=== PATIENT | male | born 1960 | race Caucasian/White ===

== ENCOUNTER → 2023-09-19 06:35 | Outpatient (REF) | payer BC, SELFPAY ==
[2023-09-19 08:00] LABS: Blood Urea Nitrogen 16 mg/dl (9-20); Calcium 9.7 mg/dl (8.4-10.2); Carbon Dioxide 22 mmol/L (22-30); Chloride 107 mmol/L (98-107); Glucose 146 mg/dl (70-99); Potassium 4.7 mmol/L (3.5-5.1); Sodium 138 mmol/L (135-145); eGFR > 60.00
[2023-09-19 08:18] LABS: Microalbumin, Random Urine 1.2 mg/dl (0.6-1.7); Microalbumin/creatinine Ratio 9.5 mg/g
== END ==
LOC: REG 06:35
PROVIDERS: ATTENDING PHYSICIAN Family Medicine
DX: E11.59 Type 2 diabetes mellitus with other circulatory complications (principal)
CPT/HCPCS: 36415; 80048; 82043; 82570; 83036

== ENCOUNTER → 2023-10-02 06:45 | Outpatient (REF) | payer BC, SELFPAY ==
[2023-10-02 20:29] LABS: Hepatitis A IgM Antibody Negative (Negative)
[2023-10-03 19:07] LABS: EBV-EA (D) Ab IgG 6.3 U/mL (0.0-10.9); EBV-NA IgG 6.6 U/mL (0.0-21.9); EBV-VCA IgM Antibodies <10.0 U/mL (0.0-43.9)
== END ==
LOC: REG 06:45
PROVIDERS: ATTENDING PHYSICIAN Family Medicine
DX: R53.82 Chronic fatigue, unspecified (principal)
CPT/HCPCS: 36415; 86663; 86664; 86665; 86709

== ENCOUNTER → 2024-01-16 07:40 | Outpatient (REF) | payer BC, SELFPAY | LOC: DHCBC/DCA 07:40 | PROVIDERS: ATTENDING PHYSICIAN Internal Medicine; FAMILY PHYSICIAN Family Medicine | DX: R53.83 Other fatigue (principal); I10 Essential (primary) hypertension; E78.2 Mixed hyperlipidemia | CPT/HCPCS: 78452; 93017; A9500; J2785 ==

== ENCOUNTER → 2024-01-21 07:14 | Outpatient (REF) | payer BC, SELFPAY | LOC: HWRCS 07:14 | PROVIDERS: ATTENDING PHYSICIAN Internal Medicine; FAMILY PHYSICIAN Family Medicine | DX: I10 Essential (primary) hypertension (principal); R53.83 Other fatigue; E78.2 Mixed hyperlipidemia | CPT/HCPCS: 93306 ==

== ENCOUNTER → 2024-07-09 06:20 | Outpatient (REF) | payer BC, SELFPAY ==
[2024-07-09 07:48] LABS: ALT (SGPT) 29 U/L (0-50); AST (SGOT) 28 U/L (17-59); Albumin 4.1 g/dl (3.5-5.0); Alkaline Phosphatase 110 U/L (38-126); Blood Urea Nitrogen 13 mg/dl (9-20); Calcium 9.4 mg/dl (8.4-10.2); Carbon Dioxide 24 mmol/L (22-30); Chloride 102 mmol/L (98-107); Glucose 232 mg/dl (70-99); HDL Cholesterol 40 mg/dl; LDL Cholesterol, Calculated 80 mg/dl; Potassium 4.7 mmol/L (3.5-5.1); Sodium 135 mmol/L (135-145); Total Bilirubin 1.8 mg/dl (0.2-1.3); Total Cholesterol 162 mg/dl (50-199); Total Protein 7.2 g/dl (6.3-8.2); Triglyceride 213 mg/dl (10-149); Very Low Density Lipoprotein 42 mg/dl (0-30); eGFR > 60.00
[2024-07-09 08:47] LABS: Free T4 0.77 ng/dl (0.78-2.19)
[2024-07-09 12:45] LABS: Glycohemoglobin (HgbA1c) 8.2 % (4.0-5.6)
== END ==
LOC: REG 06:20
PROVIDERS: ATTENDING PHYSICIAN Family Medicine
DX: E11.59 Type 2 diabetes mellitus with other circulatory complications (principal)
CPT/HCPCS: 36415; 80053; 80061; 83036; 84439; 84443

== ENCOUNTER → 2024-08-07 10:57 | Outpatient (REF) | payer BC, SELFPAY ==
[2024-08-07 13:16] LABS: TSH Reflex To Free T4 3.09 uIU/ml (0.47-4.68)
== END ==
LOC: REG 10:57
PROVIDERS: ATTENDING PHYSICIAN Family Medicine
DX: E03.9 Hypothyroidism, unspecified (principal)
CPT/HCPCS: 36415; 84443

== ENCOUNTER → 2024-10-20 06:24 | Outpatient (REF) | payer BC, SELFPAY ==
[2024-10-20 08:24] LABS: Blood Urea Nitrogen 16 mg/dl (9-20); Carbon Dioxide 23 mmol/L (22-30); Chloride 109 mmol/L (98-107); Glucose 131 mg/dl (70-99); Sodium 143 mmol/L (135-145); eGFR > 60.00
[2024-10-20 09:08] LABS: Glycohemoglobin (HgbA1c) 6.8 % (4.0-5.6)
== END ==
LOC: REG 06:24
PROVIDERS: ATTENDING PHYSICIAN Family Medicine
DX: E11.59 Type 2 diabetes mellitus with other circulatory complications (principal); K52.9 Noninfective gastroenteritis and colitis, unspecified
CPT/HCPCS: 36415; 80048; 83036

== ENCOUNTER → 2024-12-17 06:19 | Outpatient (REF) | payer BC, SELFPAY ==
[2024-12-17 07:49] LABS: ALT (SGPT) 28 U/L (0-50); AST (SGOT) 23 U/L (17-59); Albumin 4.3 g/dl (3.5-5.0); Alkaline Phosphatase 112 U/L (38-126); Blood Urea Nitrogen 12 mg/dl (9-20); Calcium 9.2 mg/dl (8.4-10.2); Carbon Dioxide 24 mmol/L (22-30); Chloride 108 mmol/L (98-107); Glucose 129 mg/dl (70-99); Magnesium 2.2 mg/dl (1.6-2.3); Potassium 4.3 mmol/L (3.5-5.1); Sodium 140 mmol/L (135-145); Total Protein 7.1 g/dl (6.3-8.2); eGFR > 60.00
== END ==
LOC: REG 06:19
PROVIDERS: ATTENDING PHYSICIAN Family Medicine
DX: E11.59 Type 2 diabetes mellitus with other circulatory complications (principal); Z68.34 Body mass index [BMI] 34.0-34.9, adult; E66.09 Other obesity due to excess calories; E61.2 Magnesium deficiency
CPT/HCPCS: 36415; 80053; 83735

== ENCOUNTER 2025-01-07 09:50 | Emergency (ER) | payer BC, SELFPAY ==
[2025-01-07 09:52] VITALS: BP 134/74
[2025-01-07 10:58] VITALS: BP 128/76; BMI 30.8
[2025-01-07 11:00] VITALS: BP 129/71
--- NOTE | 2025-01-07 11:23 | ED.GENMED ---
History of Present Illness
General
Chief Complaint: Chest Pain
Source: patient and records
Exam Limitations: none
Time Seen by Provider: 01/07/25 11:02
Nursing documentation reviewed up to this point in time: agreed with
History of Present Illness
History of Present Illness:
64-year-old male prior stroke on Aggrenox hypertensive diabetic hyperlipidemia non-smoker nondrinker except for communion wine presents with episodes of chest pain in the past 4 days while at rest varying from 20 minutes to an hour described as a
pressure in his chest nonradiating no shortness of breath no diaphoresis, no prior episodes has been seen by [facility] cardiology previously the patient states he does not have coronary artery disease nor arrhythmias
Currently chest pain-free most recent episode of chest pain was around 5:30 AM today lasted 20 to 30 minutes
Past History
Past History
ED Past Medical History: CVA, HTN and NIDDM; Negative [facility]
ED Past Surgical History: Negative Cardiac
Social History
Tobacco: Non-smoker
Alcohol: None
Drug: None
Living: with family
Employment: Employed
Family History
Family History: Hypertension
Review of Systems
Review of Systems
All Other Systems: Not applicable
Constitutional: Denies fever, fatigue or chills
Respiratory: Denies trouble breathing
Cardiac: Reports chest pain; Denies diaphoresis, palpitations or syncope
ABD/GI: Reports no symptoms
Phy Exam
Physical Exam
Physical Exam:
Physical Exam
General: no apparent distress, not acutely ill
Neck: No jaundice
Heart: s1/s2 regular rate and rhythm, no murmur. equal radial pulses.
Lungs: no acute respiratory distress. clear bilaterally
Abdomen: Not tender
Neuro: alert and oriented. no focal neurological deficits
Skin: no rash
Psychiatric: well kept. interactive and cooperative
Extremities: no edema. no calf tenderness.
Scores
Heart Score for Chest Pain Patients
STEMI patient?: No
History: Slightly or Non-Suspicious
ECG: Normal
Age: >45 - <65 years
Risk Factors: >/= 3 Risk Factors or History of CAD
Troponin: </= Normal Limit
Heart Score for Chest Pain Patients: 3
Heart Score Risk: 2.5% MACE over next 6 weeks
Course
Orders/Labs/Results
Orders:
Orders
01/07/25 09:54
EKG [Electrocardiogram (*1)] Urgent
Reason for Study: Chest Pain
EKG- Treatment ONCE
01/07/25 11:18
Electrocardiogram (*1) Stat
Reason for Study: Other
Other Reason for Exam: chest pain
CR Chest - 2 Views Urgent
Comment:
Reason For Exam: cp
01/07/25 11:45
Complete Blood Count/With Diff Urgent
Comprehensive Metabolic Panel Urgent
Lipase Urgent
Magnesium Urgent
TSH Urgent
Troponin I Urgent
Abnormal Lab Results
01/07/25
11:45
MCV 94.7 H fL
(80.0-94.0)
MCH 31.9 H pg
(27.0-31.0)
Absolute Monos (auto) 1.1 H 10^3/uL
(0.1-0.6)
Monocytes % 10.7 H %
(1.7-9.3)
Glucose 159 H mg/dl
(70-99)
01/07/25 11:45
01/07/25 11:45
Vital Signs
Initial and Last Documented VS:
Initial Vital Signs
Temp Pulse Resp BP Pulse Ox
99.3 F 82 16 134/74 98
01/07/25 09:52 01/07/25 09:52 01/07/25 09:52 01/07/25 09:52 01/07/25 09:52
Last Documented Vital Signs
Temp Pulse Resp BP Pulse Ox
99.3 F 77 22 123/77 96
01/07/25 09:52 01/07/25 13:15 01/07/25 13:15 01/07/25 13:00 01/07/25 13:00
MDM/Problems Addressed
Differential Diagnosis Includes:
ACS, noncardiac chest pain pancreatitis pleurisy doubt PE or pneumothorax
MDM/Problems Addressed:
Chest pain
Chronic conditions affecting care: DM and HTN
Acute Exacerbation and/or Progression of Chronic Illness: DM and HTN
*Radiology
Radiology exam reviewed: preliminary read by ED provider
*Pulse Oximetry
SaO2: 93
Oxygen Mode of Delivery: Room air
Patient hypoxic: no
*EKG
Interpreted by ED Provider?: Yes
Interpretation: abnormal
Comparison EKG: no comparison EKG present
Heart Rate: 70
Rate: normal
Rhythm: sinus
Ischemia: other (Inferior Q waves seen on prior trace)
*Rate Supervisor Interpretation
Rate: normal
Interpretation: normal
Heart Rate: 70
Rhythm: sinus
*Critical Care Note
Total Time (30-74mins, 75-104mins- exclusive of procedures): Not Applicable
Update Note
Update Note:
1:10 PM update chest x-ray noted report noted labs noted troponin noted patient is hungry
Patient appears stable for outpatient follow-up chest pain hotline notified
ED Attending Note
-
Portions of this chart may have been created with voice recognition software.� Occasional wrong word or��sound alike� substitutions may have occurred due to the inherent limitations of voice recognition software.
Discharge Plan
Departure
Patient Disposition: Home (Routine Discharge)
Date of Disposition: 01/07/25
Time of Disposition: 13:17
Patient with high blood pressure during this ER visit?: No
Condition: Good
Discharge Problem:
Chest pain
Instructions: Chest Pain CBC Follow Up
Prescriptions:
No Action
Aggrenox:
Patient Comments:
unknown dosage
LISINOPRIL
Patient Comments:
unknown dosage
Levothyroxine
Patient Comments:
unknown dosage
Simvastatin
Patient Comments:
unknown dosage
Referrals:
Lane Marcelo MD [Family Provider, Family Practice]
Interventions
Interventions:
*Risk Screen - Suicide Last Done: 01/07/25 09:52
*General Assessment Last Done: 01/07/25 10:58
*Neglect/Abuse Screening Last Done: 01/07/25 09:52
*ED- Fall Risk Assessment Last Done: 01/07/25 10:58
*ED COVID-19 Vaccine History Last Done: 01/07/25 10:58
ED- Cardiac Assessment Last Done: 01/07/25 10:58
Discharge Date and Time
Print Language: GIBRALTARIAN
--- NOTE | 2025-01-07 11:32 | EDRN ---
Attempted IV and blood work but difficult stick. Another RN requested to attempt blood draw and IV
[2025-01-07 11:54] LABS: Hematocrit 51.6 % (39.0-52.0); Hemoglobin 17.4 g/dL (13.0-18.0); Mean Corp Hgb Conc. 33.7 g/dL (33.0-37.0); Mean Corpuscular Volume 94.7 fL (80.0-94.0); Nucleated Red Blood Cells % 0 % (-); Platelet Count 252 10^3/uL (130-400); Red Cell Dist. Width 13.6 % (11.5-14.5)
[2025-01-07 11:56] VITALS: BP 129/71
[2025-01-07 12:00] VITALS: BP 132/82
[2025-01-07 12:09] LABS: ALT (SGPT) 23 U/L (0-50); AST (SGOT) 21 U/L (17-59); Albumin 4.4 g/dl (3.5-5.0); Alkaline Phosphatase 102 U/L (38-126); Blood Urea Nitrogen 15 mg/dl (9-20); Calcium 9.8 mg/dl (8.4-10.2); Carbon Dioxide 25 mmol/L (22-30); Chloride 107 mmol/L (98-107); Estimated Creatinine Clearance 89 ml/min; Glucose 159 mg/dl (70-99); Lipase 107 U/L (23-300); Magnesium 2.1 mg/dl (1.6-2.3); Potassium 4.8 mmol/L (3.5-5.1); Sodium 140 mmol/L (135-145); Total Protein 7.6 g/dl (6.3-8.2); eGFR > 60.00
[2025-01-07 12:19] LABS: Troponin I < 0.012 ng/ml
[2025-01-07 12:39] LABS: TSH 1.21 uIU/ml (0.47-4.68)
[2025-01-07 13:00] VITALS: BP 123/77
== END 2025-01-07 13:35 | disposition home or self-care (01) ==
LOC: EMR 09:50
PROVIDERS: EMERGENCY PHYSICIAN Emergency Medicine; FAMILY PHYSICIAN Family Medicine
DX: R07.89 Other chest pain (principal); I10 Essential (primary) hypertension; E11.69 Type 2 diabetes mellitus with other specified complication; I25.10 Atherosclerotic heart disease of native coronary artery without angina pectoris; Z82.49 Family history of ischemic heart disease and other diseases of the circulatory system; Z86.73 Personal history of transient ischemic attack (TIA), and cerebral infarction without residual deficits
CPT/HCPCS: 99283; 71046; 80053; 83690; 83735; 84443; 84484; 85025; 93005

== ENCOUNTER → 2025-01-20 08:11 | Outpatient (REF) | payer BC, SELFPAY | LOC: RCS 08:11 | PROVIDERS: ATTENDING PHYSICIAN Internal Medicine Cardiovascular Disease; FAMILY PHYSICIAN Family Medicine | DX: R07.2 Precordial pain (principal) | CPT/HCPCS: 93306 ==

== ENCOUNTER → 2025-01-21 07:16 | Outpatient (REF) | payer BC, SELFPAY | LOC: HWRCS 07:16 | PROVIDERS: ATTENDING PHYSICIAN Internal Medicine Cardiovascular Disease; FAMILY PHYSICIAN Family Medicine | DX: R07.2 Precordial pain (principal) | CPT/HCPCS: 78452; 93017; A9500; J2785 ==

== ENCOUNTER 2025-02-12 01:57 | Inpatient (IN) | payer BC, SELFPAY ==
[2025-02-11 22:21] VITALS: BP 151/82
[2025-02-11 22:32] VITALS: BMI 32.2
[2025-02-11 22:44] VITALS: BP 144/85
[2025-02-11 23:00] VITALS: BP 96/75
[2025-02-11 23:06] LABS: Hematocrit 50.8 % (39.0-52.0); Hemoglobin 17.4 g/dL (13.0-18.0); Mean Corp Hgb Conc. 34.3 g/dL (33.0-37.0); Mean Corpuscular Volume 92.0 fL (80.0-94.0); Nucleated Red Blood Cells % 0 % (-); Platelet Count 239 10^3/uL (130-400); Red Cell Dist. Width 13.5 % (11.5-14.5)
--- NOTE | 2025-02-11 23:29 | ED.GENMED ---
History of Present Illness
General
Chief Complaint: Chest Pain
Source: patient, previous radiology exam (Unremarkable chest x-ray January 07. Unremarkable nuclear stress test January 21) and previous hospital records (ED visit 1 month ago for similar complaints of chest pain. Unremarkable ED workup. Has since
followed up with cardiology and underwent unremarkable nuclear stress test January 21)
Exam Limitations: none
Time Seen by Provider: 02/11/25 22:30
Nursing documentation reviewed up to this point in time: agreed with
History of Present Illness
History of Present Illness:
The patient is a 65-year-old male with a history of diabetes, hypertension, hyperlipidemia, and prior stroke, presenting with chest pain that began at approximately 5:00 PM today. The patient described the pain as occurring in the center, more
towards the left side of the chest. He reported that the pain did not worsen with deep breaths, was constant since its onset, and was similar to, yet distinct from, the chest pain experienced during a previous episode a month ago.
The prior chest pain episode had been investigated with a stress test, which was normal. The patient denied any breathing difficulties or cough and has not experienced fever. He mentioned that a coworker recently had COVID-related symptoms, which
has raised concern about a possible connection given the current symptoms.
Additionally, the patient noted heaviness in the chest while walking uphill to work at the [employer] over the past several days, which resolved after reaching his destination. He is not on insulin but takes Aggrenox for stroke prevention and does
not take additional aspirin. The patient does not smoke. An electrocardiogram performed in the department appeared similar to the one obtained during the previous visit.
He also notes waking up this morning with a mildly scratchy throat. He denies sore throat. No nasal congestion. He has not had a fever.
No leg pain or swelling.
Past History
Past History
ED Past Medical History: CVA, HTN, Hypercholesterolemia and NIDDM; Negative [facility]
ED Past Surgical History: Negative Cardiac
Social History
Tobacco: Non-smoker
Alcohol: None
Drug: None
Personal: Other
Living: with family
Employment: Employed (Works at the [employer])
Family History
Family History: Hypertension
Phy Exam
Physical Exam
Physical Exam:
GENERAL: 65-year-old overweight gentleman appears his stated age. Awake and alert, pleasant, appears in no acute distress.
EYE: anicteric
NECK: Supple, nontender, no meningismus, no significant adenopathy.
ENT: oral mucosa is moist. No rhinorrhea.
CARDIAC: Regular rate and rhythm. no murmur. No chest wall tenderness.
LUNGS: Clear breath sounds bilaterally, no acute respiratory distress, no wheezes/rales/rhonchi
ABDOMEN: Rotund, soft, nondistended, without focal tenderness, normoactive BS.
NEUROLOGICAL: Alert and oriented x3, no focal neuro deficits.
SKIN: Warm and dry, normal color, skin intact. No rash.
MUSCULOSKELETAL: No C/C/E. peripheral pulses are full and equal b/l. No palpable tenderness.
PSYCH: Normal and appropriate interaction.
Scores
Heart Score for Chest Pain Patients
STEMI patient?: Yes
Course
Orders/Labs/Results
Orders:
Orders
02/11/25 22:23
EKG [Electrocardiogram (*1)] Urgent
Reason for Study: Chest Pain
02/11/25 22:24
EKG- Treatment ONCE
02/11/25 22:39
Complete Blood Count/With Diff Urgent
Comprehensive Metabolic Panel Urgent
Lipase Urgent
Troponin I Urgent
02/11/25 22:48
D-Dimer Urgent
02/11/25 23:08
COVID-19 Antigen Urgent
Source: Nasal Swab
02/12/25 00:20
EKG- Treatment ONCE
02/12/25 00:30
Electrocardiogram (*1) Urgent
Reason for Study: Chest Pain
02/12/25 00:46
Aspirin Chewable [Low Strength Aspirin] 324 mg .ROUTE .STK-MED ONE
Nitroglycerin Sublingual [Nitrostat (Sublingual)] 0.4 mg .ROUTE .STK-MED ONE
02/12/25 00:48
Aspirin Chewable [Low Strength Aspirin] 324 mg PO NOW STA
02/12/25 00:49
Nitroglycerin Sublingual [Nitrostat (Sublingual)] 0.4 mg SL NOW STA
02/12/25 00:54
PTT Urgent
Troponin I Urgent
02/12/25 00:55
Nitroglycerin Sublingual [Nitrostat (Sublingual)] 0.4 mg SL NOW STA
02/12/25 01:00
0.9% Sodium Chloride 1000 ml [Nss] 1,000 ml IV BOLUS
02/12/25 01:01
Nitroglycerin Sublingual [Nitrostat (Sublingual)] 0.4 mg SL NOW STA
02/12/25 01:04
Heparin 4,000 units IV NOW STA
02/12/25 01:05
Electrocardiogram (*1) Urgent
Reason for Study: Chest Pain
EKG- Treatment ONCE
Nursing to Place Non Medication Order As Directed
Physician Order: PTT 6 hours after initial start of Heparin infusion
heparin discontinues post cath
Above order entered?: Yes
02/12/25 01:15
Heparin 37880 Units/250 ml 25,000 units in 250 ml IV PER PROTOCOL
Weight to be used for heparin protocol in kilograms (kg):: 96
Protocol:: Cardiac Tx/Acute Coronary
PTT Goal Range to be used:: PTT 73 to 111 seconds
Order type:: Initial
INITIAL Infusion Dose (UNITS/KG/hr) & then follow protocol:: 12 units/kg/hr
Infusion Dose in UNITS/hr & then follow protocol (UNITS/hr):: 1,000
INFUSION RATE in mL/hr & then follow protocol (mL/hr):: 10
PTT less than or equal to 64 seconds:: Increase rate by 200 units/hr (+ 2 mL/hr)
PTT 64.1 to 72.9 seconds:: Increase rate by 100 units/hr (+ 1 mL/hr)
PTT 73 to 111 seconds:: Target Range. No change in rate.
PTT 111.1 to 130.9 seconds:: Decrease rate by 100 units/hr (- 1 mL/hr)
PTT 131 to 199.9 seconds:: HOLD for 1 hr. Then decrease rate by 200 units/hr (- 2 mL/hr)
PTT greater than or equal to 200 seconds:: HOLD for 2 hrs & Notify Provider. Then decrease by 200 units/hr (-
2 mL/hr)
Lab follow-up:: Each change, PTT q6h until 2 consecutive are therapeutic. Then PTT
daily.
02/12/25 01:16
Heparin 5,000 units IV NOW STA
02/12/25 01:18
Morphine Sulfate 4 mg .ROUTE .STK-MED ONE
02/12/25 01:19
Morphine Sulfate 2 mg IV NOW STA
02/12/25 01:21
Ondansetron Injectable [Zofran] 4 mg .ROUTE .STK-MED ONE
02/12/25 01:26
Morphine Sulfate 4 mg IV NOW STA
02/12/25 01:28
Heparin 5,000 units .ROUTE .STK-MED ONE
Ticagrelor [Brilinta] 180 mg .ROUTE .STK-MED ONE
02/12/25 01:40
Fentanyl Citrate/Pf [Sublimaze] 100 mcg .ROUTE .STK-MED ONE
Heparin 10,000 units .ROUTE .STK-MED ONE
Heparin 1000 Units/500 ml [Heparin] 1,000 units in 500 ml .ROUTE .STK-MED
Heparin Sodium,Porcine/Ns/Pf [Heparin 2000 Units/1000 ml] 2,000 unit in 1,000 ml .ROUTE .STK-MED
Lidocaine HCl/Pf [Xylocaine-Mpf 1% Vial] 100 mg .ROUTE .STK-MED ONE
Midazolam HCl [Versed] 2 mg .ROUTE .STK-MED ONE
Nitroglycerin [Tridil] 1,500 mcg .ROUTE .STK-MED ONE
Verapamil Injectable [Isoptin/Verapamil Injection] 5 mg .ROUTE .STK-MED ONE
Abnormal Lab Results
02/11/25 02/12/25 02/12/25
22:39 00:54 01:57
WBC 11.4 H 10^3/uL
(4.8-10.8)
MCH 31.5 H pg
(27.0-31.0)
Absolute Neuts (auto) 6.9 H 10^3/uL
(1.4-6.5)
Absolute Monos (auto) 1.4 H 10^3/uL
(0.1-0.6)
Monocytes % 11.8 H %
(1.7-9.3)
Potassium 5.2 H mmol/L
(3.5-5.1)
Glucose 257 H mg/dl
(70-99)
Troponin I 0.055 H* D ng/ml
POC ACT Low Range 184 H Seconds
(116-155)
02/12/25 00:46
02/11/25 22:39
Vital Signs
Initial and Last Documented VS:
Initial Vital Signs
Temp Pulse Resp BP Pulse Ox
98.6 F 95 12 151/82 96
02/11/25 22:21 02/11/25 22:21 02/11/25 22:21 02/11/25 22:21 02/11/25 22:21
Last Documented Vital Signs
Temp Pulse Resp BP Pulse Ox
98.6 F 94 13 135/89 97
02/11/25 22:21 02/12/25 05:00 02/12/25 01:30 02/12/25 05:00 02/12/25 04:31
MDM/Problems Addressed
Differential Diagnosis Includes:
The Differential Diagnosis includes, in no particular order and is not limited to:
- Angina (due to coronary artery disease)
- Costochondritis
- Gastroesophageal reflux disease
- Pulmonary embolism
- Aortic dissection
- Pericarditis
- Myocarditis
- Anxiety or panic disorder
- COVID-19 related chest pain
- Musculoskeletal pain
MDM/Problems Addressed:
Acute chest pain
Potential exposure to COVID
Plan:
- Perform a COVID test due to recent exposure to a coworker with COVID.
- Will check cardiac enzymes and a D-dimer test to assess for possible blood clots, with a note on the limited positive predictive value for D-dimer. If elevated, a CT chest with contrast may be considered.
- The patient has a recent negative stress test, providing reassurance against acute coronary syndrome.
Chronic conditions affecting care: DM, HTN, Neurological disorder (Prior history of CVA) and Other (Hyperlipidemia)
*Pulse Oximetry
SaO2: 94
Oxygen Mode of Delivery: Room air
Patient hypoxic: no
*EKG
Interpreted by ED Provider?: Yes
Comparison EKG: no changes (Unchanged from previous January 07, 2025)
Rate: normal
Rhythm: sinus
[place]: left axis deviation
Interval: normal interval
QRS Pattern: normal QRS
Ischemia: no ischemia
*Heel Splitter Interpretation
Rate: normal
Interpretation: normal
Rhythm: sinus
*Critical Care Note
Total Time (30-74mins, 75-104mins- exclusive of procedures): 45
comment:
Critical care statement: A total of 45 minutes of critical care time was provided for this patient. This includes management of unstable vital signs, evaluation of the patient at bedside, reviewing the patient's pertinent medical records, discussion
with consultants, review of old EKGs and review of pertinent medical records. This time with separate from time utilized to perform the aforementioned documented procedures
Update Note
Update Note:
00:55
Patient got up to go to the bathroom and upon returning he reports worsening chest pain, pressure in nature accompanied with shortness of breath and moderate diaphoresis.
Repeat EKG shows acute changes, ST depression anteriorly concerning for acute anterior ischemia versus potential posterior wall AR/STEMI.
324 mg chewable aspirin and thus far 2 sublingual nitroglycerin with moderate improvement in chest pain but has not completely resolved.
Case discussed with interventional list, Dr. Pantoja. EKGs reviewed.
Will give an additional nitroglycerin, recheck EKG and if continues with chest pain
01:10
After 3 sl nitroglycerin, chest pain is improved but continues at an 8 out of 10.
Repeat EKG continues with some ST depression anteriorly now with mild ST elevation inferiorly in 3 and aVF concerning for inferior wall AR/STEMI. STEMI alert initiated.
01:30
Chest pain improved to about a 7. No further diaphoresis.
Monitor shows sinus rhythm 60
Systolic blood pressure 114
Mild nausea after small IV dose of morphine, has since resolved with IV Zofran.
Awaiting cardiology and Airline Radio Operator team arrival.
ED Attending Note
-
Portions of this chart may have been created with voice recognition software.� Occasional wrong word or��sound alike� substitutions may have occurred due to the inherent limitations of voice recognition software.
Discharge Plan
Departure
Patient Disposition: Admit
Date of Disposition: 02/12/25
Time of Disposition: 01:34
Admit to: [facility]ICU and crime lab analyst
Admit to doctor: Kit
Presentation/result/management discussed w/ accepting MD/DO: cardiology
Condition: Serious
Discharge Problem:
ST elevation (STEMI) myocardial infarction
Interventions
Interventions:
*Risk Screen - Suicide Last Done: 02/11/25 22:21
*General Assessment Last Done: 02/11/25 22:21
*Neglect/Abuse Screening Last Done: 02/11/25 22:21
*ED- Fall Risk Assessment Last Done: 02/11/25 23:14
*ED COVID-19 Vaccine History Last Done: 02/11/25 22:21
*Nursing Disposition Last Done: 02/12/25 01:45
ED- Cardiac Assessment Last Done: 02/11/25 22:45
Discharge Date and Time
Discharge Date/Time: 02/12/25 01:50
[2025-02-11 23:33] LABS: Troponin I 0.032 ng/ml
[2025-02-11 23:33] LABS: COVID-19 Antigen Negative (Negative)
[2025-02-11 23:34] LABS: ALT (SGPT) 31 U/L (0-50); AST (SGOT) 32 U/L (17-59); Albumin 4.3 g/dl (3.5-5.0); Alkaline Phosphatase 95 U/L (38-126); Blood Urea Nitrogen 20 mg/dl (9-20); Calcium 9.4 mg/dl (8.4-10.2); Carbon Dioxide 24 mmol/L (22-30); Chloride 105 mmol/L (98-107); Estimated Creatinine Clearance 76 ml/min; Glucose 257 mg/dl (70-99); Lipase 171 U/L (23-300); Potassium 5.2 mmol/L (3.5-5.1); Sodium 137 mmol/L (135-145); Total Protein 7.4 g/dl (6.3-8.2); eGFR > 60.00
[2025-02-11 23:44] LABS: D-Dimer < 0.27 ug/mlFEU (0.00-0.50)
[2025-02-12] VITALS (23 sets, daily range): BP systolic 97–156; BP diastolic 64–98; BMI 31.7
[2025-02-12] MEDS: LOW STRENGTH ASPIRIN 324 MG PO (00:48)
[2025-02-12] MEDS: NITROSTAT (SUBLINGUAL) 0.4 MG SL ×3 (00:49→01:01)
[2025-02-12] MEDS: NSS 1000 IV (01:00)
[2025-02-12] MEDS: HEPARIN 5000 UNITS IV (01:19)
[2025-02-12] MEDS: MORPHINE SULFATE 4 MG IV (01:26)
[2025-02-12 01:27] LABS: APTT 26.9 Sec (23.4-35.0)
[2025-02-12 01:47] LABS: Troponin I 0.055 ng/ml
[2025-02-12 02:13] LABS: ACT-LR - POC 184 Seconds (116-155)
[2025-02-12 02:28] LABS: ACT-LR - POC 285 Seconds (116-155)
[2025-02-12 02:48] LABS: ACT-LR - POC 324 Seconds (116-155)
--- NOTE | 2025-02-12 03:02 | ITS.CL.CATH ---
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
Cardiac Catheterization
Procedure Report:
LEFT HEART CATH AND CORONARY INTERVENTION
Date of Procedure: February 12, 2025
Referring: Dr. William Ellsworth
PROCEDURES:
1. Left heart catheterization with coronary and single-plane left ventriculography
2. Successful stenting of the mid circumflex with placement of a 3.5 x 18 mm Mihai stent that was postdilated with a 3.75 mm noncompliant balloon to 18 carolina distally and 20 carolina proximally
INDICATION: This is a 65-year-old diabetic gentleman with a past medical history notable for hypertension, hyperlipidemia, diabetes, hypothyroidism, obesity and prior CVA. He was seen in [facility] in mid December for evaluation of
substernal chest tightness with serial troponin levels measuring within normal limits. A subsequent stress study on 01/21/2025 was notable for no fixed or reversible defect and preserved LVEF estimated at 57%. An echocardiogram from that time was
also notable for preserved LV systolic function with an estimated ejection fraction of 60-65% and no significant valvular heart disease.
He reported the onset of substernal chest pressure this evening at approximately 5 PM after work. His symptoms persisted and he presented to [facility] emergency department for further evaluation. He received aspirin, heparin, and
sublingual nitroglycerin. In spite of aggressive medical therapy he continued to experience chest tightness and a NSTEMI Alert was activated for ongoing chest pain in spite of good medical therapy. He is now referred for emergent coronary
angiography.
ACCESS: Right radial artery, 6 Latvian sheath
HEMODYNAMICS (mmHg):
AO (s/d, m) : 103/74, 88
LV (s/d) : 111/19
LVEDP : 32
CORONARY FINDINGS
Dominance: Right
LEFT MAIN: Normal
LEFT ANTERIOR DESCENDING: The LAD arises normally from the left main and runs in the anterior interventricular groove. There is a 30% ostial narrowing and 50-60% stenosis in the mid LAD just beyond the first septal calender supervisor. A 50% stenosis is
noted in the mid LAD near the origin of the first diagonal branch and 40% stenosis near the origin of a very small second diagonal branch. The remainder of the LAD has diffuse noncritical luminal irregularities. The first diagonal branch has a 60%
ostial stenosis
CIRCUMFLEX: 100% occluded in the mid vessel
RIGHT CORONARY: The right coronary artery is chronically occluded in its midportion with right to right collaterals and well-developed [id number] collaterals filling the distal vessel
VENTRICULOGRAPHY: Left ventriculography is performed in an MENDEZ projection. The digital single-plane left ventricular ejection fraction is visually estimated at 30-35% with moderate global hypokinesis more prominent in the anterolateral and inferior
jo.
ANGIOPLASTY PROCEDURE DETAIL: Upon review of the diagnostic catheterization films the decision was made to proceed with percutaneous revascularization of the 100% occluded circumflex. Intravenous heparin was administered and the ACT was monitored
throughout the procedure. He received 324 mg loading dose of aspirin in the emergency department as well as a 180 mg loading dose of ticagrelor.
The origin of the left main was cannulated with a 6 Latvian EBU 3.75 guiding catheter and a short BMW guidewire across the occluded segment in the mid circumflex without significant difficulty. Balloon predilation was performed with a 2.0 x 12 mm
Euphora balloon which restored antegrade flow into a large nondominant circumflex. A 3.5 x 18 mm Whitehall stent was implanted in the mid circumflex at 14 carolina and was postdilated with a 3.75 mm noncompliant balloon distally to 18 carolina and proximally to
20 carolina with a nice angiographic result
SEDATION: 37 minutes of procedural sedation was utilized. An independent medical dermatologist was present to assist with and help manage the patient's level of consciousness and physiologic status
RADIATION SUMMARY: Fluoro Time (min): 8.8, Dose (mGy): 1013, DAP (Gy.cm2) : 56
CONCLUSIONS
1. Acute non-ST segment elevation myocardial infarction secondary to 100% occluded mid circumflex. Successful stenting of this vessel with a 3.5 x 18 mm Whitehall stent that was implanted at 14 carolina and postdilated to high-pressure's with a 3.75 mm
noncompliant balloon
2. Moderate LV dysfunction and visually estimated ejection fraction of 30-35%
RECOMMENDATIONS
1. Trend serial troponin, obtain fasting lipid profile, TSH/T4 and hemoglobin A1c
2. Uninterrupted dual antiplatelet therapy for 12 months
3. Guideline directed medical therapy for ischemic cardiomyopathy and coronary artery disease
Copy to: Dr. William Ellsworth
--- NOTE | 2025-02-12 03:29 | W.PN.UPDATE ---
Update Note
Progress Note Update
Attending addendum: Please refer to dictated history and physical exam.
Briefly, 65-year-old gentleman with a past medical history notable for hypertension, hyperlipidemia, diabetes, remote CVA, and morbid obesity who presented to [facility] following the onset of substernal chest pressure approximately 6 hours
prior to admission. His initial electrocardiograms were notable for ST depression involving leads V1 through V3. He continued to experience chest tightness following heparin and sublingual nitroglycerin. His electrocardiogram improved but his
symptoms persisted and he is now referred for emergent coronary angiography.
--- NOTE | 2025-02-12 04:33 | PTCARENOTE ---
Rec'd pt as STEMI from operations label clerk. PT AAO*3, VSS, and SR on TELE monitor. Pt denies any pain or discomfort at this time. R radial site CDI and pt agree to RUE activity restrictions. Pt oriented to unit and provided CAD education. See MAR and
flowchart for full pt care and assessment.
[2025-02-12 04:36] LABS: Hematocrit 49.7 % (39.0-52.0); Hemoglobin 17.4 g/dL (13.0-18.0); Mean Corp Hgb Conc. 35.0 g/dL (33.0-37.0); Mean Corpuscular Volume 92.6 fL (80.0-94.0); Platelet Count 258 10^3/uL (130-400); Red Cell Dist. Width 13.5 % (11.5-14.5)
[2025-02-12 05:44] LABS: Troponin I 72.200 ng/ml
[2025-02-12 05:50] LABS: HDL Cholesterol 50 mg/dl; LDL Cholesterol, Calculated 94 mg/dl; Very Low Density Lipoprotein 14 mg/dl (0-30)
[2025-02-12] MEDS: SYNTHROID 125 MCG PO (05:56)
--- NOTE | 2025-02-12 06:18 | PTCARENOTE ---
Pt R radial site oozing after taking out 3 mL after 2 hours being applied. After waiting 30 minutes to re-attempt weaning R band pt began to bleed from site again. Pt provided ice pack for site and 3mL applied back into band. Site intact with
pulse ox at 97% distal to R band. Ice applied and pt updated.
[2025-02-12 08:02] LABS: Glucose - Point of Care 166 mg/dl (70-99)
[2025-02-12] MEDS: GLUCOTROL 7.5 MG PO (08:22)
[2025-02-12] MEDS: FARXIGA 5 MG PO (08:23)
[2025-02-12] MEDS: TOPROL XL 12.5 MG PO (08:23)
[2025-02-12] MEDS: FLOMAX 0.4 MG PO (08:24)
[2025-02-12] MEDS: ZESTRIL 10 MG PO (08:24)
[2025-02-12] MEDS: PROTONIX 40 MG PO (08:24)
[2025-02-12] MEDS: LOW STRENGTH ASPIRIN 81 MG PO (08:24)
[2025-02-12 09:13] LABS: Glycohemoglobin (HgbA1c) 7.9 % (4.0-5.6)
--- NOTE | 2025-02-12 09:35 | W.PN.CD ---
Today's Communication / Plan
-
ACUTE NSTMI/left circumflex occlusion/successful stenting of left circumflex
-Status post successful PCI of left circumflex. Continue DAPT
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 There are collaterals from the LAD. LAD has 50 to 60% stenosis. Additional reviewed by interventional colleague cardiology. May consider additional assessment of LAD
-Aspirin and Brilinta
- Statin
- Beta-jesus
- RAZA inhibitor
- Echocardiogram 02/14/2025
.
Hypertension. Stable monitor with medication adjustments as noted
.
Hypercholesterolemia.
- Increase atorvastatin to 80 mg a day
- Target LDL <55
- atorvastatin
.
Diabetes. A1c 7.9 continue current therapy. Long-term follow-up with PCP
.
Thyroid disease continue current therapy
Impression / Plan
-
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
65-year-old male presented she presented to the emergency department with chest discomfort. He states that this week he noticed that when he walks from the parking [place] he was getting some midsternal chest pressure
with associated diaphoresis symptoms would resolve with rest. Then last evening he was getting some intermittent chest discomfort of similar quality symptoms were happening at rest and were occurring on and off between 5 and 10 PM but then due to
continued symptoms he went to the ER. Initial ECG 02/11/2025 at 2229 without acute ischemic changes patient states he was feeling okay in the bed in the emergency room and then he stood up to go to the bathroom and had chest discomfort with
associated diaphoresis that was greater in intensity and what he was having at home. Follow-up ECG showed new ST depression in leads V1 through V3. Patient states he had some improvement with nitroglycerin in the ER but did not have full
resolution. ER communicated with Dr. Pantoja and patient underwent emergent cardiac catheterization. This revealed 100% occlusion of the left circumflex which appeared to be the culprit vessel. In addition patient had SLITTING AND SHIPPING SUPERVISOR of the RCA and 50 to 60%
stenosis of LAD. Patient underwent successful stenting of the left circumflex. Ventriculogram with estimated ejection fraction 30 to 35%. Patient currently chest pain-free and in no distress. No complaints of shortness of breath.
Patient states initially when he had chest discomfort and diaphoresis he thought he might be getting COVID. There was a coworker who recently had COVID and had explained how they had had some chest tightness and shortness of breath associated with
the illness.
.
In further discussion with patient he did have some intermittent chest discomfort in December and was seen in the ER and ultimately had a Lexiscan without ischemia. He said that chest pain was different in quality than what he had this time. The
chest pain was more of a pain rather than pressure and was not associated with the diaphoresis and did not have the exertional component that he has had this week.
Past medical history
Diabetes
Hypercholesterolemia
Hypertension
Thyroid disease
Asthma
Diabetes
Social history non-smoker. Works at the [email or web address]
Father with history of diabetes and heart disease
Cardiac catheterization 02/12/2025
LAD 50 to 60% mid stenosis
RCA chronically occluded. Collaterals from LAD
Left circumflex mid 100% occlusion. Patient underwent successful stenting with 3.5 x 18 mm Mihai stent.
Ventriculogram. Global hypokinesis with more prominent anterolateral and inferior hypokinesis. Ejection fraction 30 to 35%
Lexiscan nuclear perfusion stress test 01/21/2025. No fixed or reversible defect seen
Physical Exam
Vital Signs/Labs
Vital Signs
Temp Pulse Resp BP Pulse Ox
98.4 F 96 18 124/66 93
02/12/25 06:58 02/12/25 08:23 02/12/25 06:58 02/12/25 08:23 02/12/25 07:30
02/11/25 02/12/25 02/13/25
06:59 06:59 06:59
Actual Weight 94.6 kg
02/12/25 03:59
02/11/25 22:39
APTT 26.9 Sec (23.4-35.0) 02/12/25 00:54
Triglycerides 74 mg/dl (10-149) 02/12/25 03:59
LDL Cholesterol, Calc 94 mg/dl 02/12/25 03:59
VLDL Cholesterol, Calc 14 mg/dl (0-30) 02/12/25 03:59
HDL Cholesterol 50 mg/dl 02/12/25 03:59
LAB Results
02/11/25 02/12/25 02/12/25
22:39 00:54 03:59
Troponin I 0.032 0.055 H* D 72.200 H* D
Physical Exam
Constitutional: No acute distress
Cardiovascular: Rhythm & rate is regular
Respiratory: Respiratory effort normal, Wheeze Absent and Rhonchi Absent
GI: Soft and Non tender
Neuro/Psych: Alert
Other: Skin (No rash), Cath Site (Right radial cath site with wristband currently stable) and Other
Data Reviewed
-
Date of Service: February 12, 2025
Medical Decision Making: Reviewed Test Results
Echo: Ordered by me
X-Ray/CT/US/MRI/NUC/PET: Report Reviewed by me
Medical Tests (PFT, Pathology etc): Report Reviewed by me
Labs: Labs Reviewed by me
[2025-02-12 10:10] LABS: Troponin I 187.000 ng/ml
[2025-02-12 15:48] LABS: Troponin I 155.000 ng/ml
[2025-02-12 17:36] LABS: Glucose - Point of Care 236 mg/dl (70-99)
[2025-02-12] MEDS: BRILINTA 90 MG PO (17:58)
[2025-02-12] MEDS: LOVENOX 40 MG SC (17:59)
[2025-02-12] MEDS: LIPITOR 80 MG PO (17:59)
[2025-02-12] MEDS: NOVOLOG FLEXPEN-LOW RESISTANCE 2 UNITS SC (17:59)
--- NOTE | 2025-02-12 18:13 | PTCARENOTE ---
Radial band removed @11:30, no sign of bleeding or hematoma. Troponin level peaked at 187. Pt reported intermittent twinges of chest discomfort, aware. Pt remained in bed all day at his request after minimal sleep last night. Telemetry
showed sinus tach with rates @90-120, rare pair of PVC's noted. Plan to monitor pt closely , ECHO on 02/14.
[2025-02-12] MEDS: BRILINTA PO (19:15)
--- NOTE | 2025-02-12 21:15 | PTCARENOTE ---
Pt. has no complaints of chest pain, VSS, NSR on the monitor. Right radial site dressing CDI with good pulse, no hematoma. Pt. resting quietly.
[2025-02-12 23:34] LABS: Glucose - Point of Care 249 mg/dl (70-99)
[2025-02-13] VITALS (9 sets, daily range): BP systolic 92–105; BP diastolic 57–83; BMI 31.6
[2025-02-13] MEDS: SYNTHROID 125 MCG PO (07:17)
--- NOTE | 2025-02-13 07:20 | W.PN.CD ---
Today's Communication / Plan
-
Stable with no recurrent chest pain overnight
Radial cath site is fine
Based on blood pressures we will lower lisinopril dose today.
Echocardiogram 02/14/2025
Diabetic education consultation
Impression / Plan
-
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
65-year-old male presented she presented to the emergency department with chest discomfort. He states that this week he noticed that when he walks from the parking lot [place] he was getting some midsternal chest pressure
with associated diaphoresis symptoms would resolve with rest. Then last evening he was getting some intermittent chest discomfort of similar quality symptoms were happening at rest and were occurring on and off between 5 and 10 PM but then due to
continued symptoms he went to the ER. Initial ECG 02/11/2025 at 2229 without acute ischemic changes patient states he was feeling okay in the bed in the emergency room and then he stood up to go to the bathroom and had chest discomfort with
associated diaphoresis that was greater in intensity and what he was having at home. Follow-up ECG showed new ST depression in leads V1 through V3. Patient states he had some improvement with nitroglycerin in the ER but did not have full
resolution. ER communicated with Dr. Pantoja and patient underwent emergent cardiac catheterization. This revealed 100% occlusion of the left circumflex which appeared to be the culprit vessel. In addition patient had RECYCLING MANAGER of the RCA and 50 to 60%
stenosis of LAD. Patient underwent successful stenting of the left circumflex. Ventriculogram with estimated ejection fraction 30 to 35%.
Past medical history
Diabetes
Hypercholesterolemia
Hypertension
Thyroid disease
Asthma
Diabetes
Cardiac catheterization 02/12/2025
LAD 50 to 60% mid stenosis
RCA chronically occluded. Collaterals from LAD
Left circumflex mid 100% occlusion. Patient underwent successful stenting with 3.5 x 18 mm Eldred stent.
Ventriculogram. Global hypokinesis with more prominent anterolateral and inferior hypokinesis. Ejection fraction 30 to 35%
Lexiscan nuclear perfusion stress test 01/21/2025. No fixed or reversible defect seen
.
ACUTE NSTMI/left circumflex occlusion/successful stenting of left circumflex
- Peak troponin 187
-Status post successful PCI of left circumflex. Continue DAPT
-Patient has residual RECYCLING MANAGER of RCA. There are collaterals from the LAD. LAD has 50 to 60% stenosis. Additional reviewed by interventional colleague cardiology. May consider additional assessment of LAD
-Aspirin and Brilinta
- Statin
- Beta-jesus
- RAZA inhibitor
- Echocardiogram 02/14/2025
Hypertension. Patient on lisinopril prior to admission. Blood pressures running lower with combination of beta-jesus and lisinopril. Lisinopril dosing being adjusted. Monitor.
.
Hypercholesterolemia.
- Increase atorvastatin to 80 mg a day
- Target LDL <55
- atorvastatin
.
Diabetes. A1c 7.9 continue current therapy. Long-term follow-up with PCP
-Diabetic education
.
Thyroid disease continue current therapy
Physical Exam
Vital Signs/Labs
Vital Signs
Temp Pulse Resp BP Pulse Ox
99.2 F 91 18 92/60 92
02/13/25 03:52 02/13/25 05:00 02/13/25 03:52 02/13/25 03:50 02/13/25 03:52
02/12/25 02/13/25 02/14/25
06:59 06:59 06:59
Actual Weight 94.6 kg
APTT 26.9 Sec (23.4-35.0) 02/12/25 00:54
Triglycerides 74 mg/dl (10-149) 02/12/25 03:59
LDL Cholesterol, Calc 94 mg/dl 02/12/25 03:59
VLDL Cholesterol, Calc 14 mg/dl (0-30) 02/12/25 03:59
HDL Cholesterol 50 mg/dl 02/12/25 03:59
LAB Results
02/11/25 02/12/25 02/12/25
22:39 00:54 03:59
Troponin I 0.032 0.055 H* D 72.200 H* D
02/12/25 02/12/25
09:14 14:42
Troponin I 187.000 H* D 155.000 H*
Physical Exam
Constitutional: No acute distress
Cardiovascular: Rhythm & rate is regular
Respiratory: Wheeze Absent and Rhonchi Absent
GI: Soft and Non tender
Neuro/Psych: Alert
Other: Cath Site (Right radial cath site is fine)
Data Reviewed
-
Date of Service: February 13, 2025
Medical Decision Making: Reviewed Test Results
EKG: Ordered by me
Echo: Ordered by me
Medical Tests (PFT, Pathology etc): Report Reviewed by me
Labs: Labs Reviewed by me
[2025-02-13 07:38] LABS: Hematocrit 48.1 % (39.0-52.0); Hemoglobin 16.3 g/dL (13.0-18.0); Mean Corp Hgb Conc. 33.9 g/dL (33.0-37.0); Mean Corpuscular Volume 92.5 fL (80.0-94.0); Nucleated Red Blood Cells % 0 % (-); Platelet Count 238 10^3/uL (130-400); Red Cell Dist. Width 13.9 % (11.5-14.5)
[2025-02-13] MEDS: FLOMAX 0.4 MG PO (07:40)
[2025-02-13] MEDS: PROTONIX 40 MG PO (07:40)
[2025-02-13] MEDS: GLUCOTROL 7.5 MG PO (07:40)
[2025-02-13] MEDS: BRILINTA 90 MG PO ×2 (07:41→19:57)
[2025-02-13] MEDS: LOW STRENGTH ASPIRIN 81 MG PO (07:41)
[2025-02-13] MEDS: TOPROL XL 12.5 MG PO (07:42)
[2025-02-13 08:04] LABS: Glucose - Point of Care 187 mg/dl (70-99)
[2025-02-13] MEDS: NOVOLOG FLEXPEN-LOW RESISTANCE 1 UNITS SC ×2 (08:04→14:16)
[2025-02-13 08:10] LABS: Albumin 3.7 g/dl (3.5-5.0); Blood Urea Nitrogen 20 mg/dl (9-20); Calcium 9.2 mg/dl (8.4-10.2); Carbon Dioxide 27 mmol/L (22-30); Chloride 103 mmol/L (98-107); Estimated Creatinine Clearance 69 ml/min; Glucose 209 mg/dl (70-99); Potassium 4.6 mmol/L (3.5-5.1); Sodium 134 mmol/L (135-145); eGFR > 60.00
--- NOTE | 2025-02-13 08:35 | PTCARENOTE ---
assumed care of pt, pt is sr on the monitor, hr in the 60s, vss. pt offers no complaints at this time. right radial is CDI. pt denies pain at site. pt educated on plan of care and verbalized understanding. call weber within reach.
[2025-02-13] MEDS: ZESTRIL 2.5 MG PO (10:12)
[2025-02-13] MEDS: FARXIGA 5 MG PO (10:12)
[2025-02-13 11:46] LABS: Glucose - Point of Care 185 mg/dl (70-99)
[2025-02-13 17:01] LABS: Glucose - Point of Care 138 mg/dl (70-99)
[2025-02-13] MEDS: LOVENOX 40 MG SC (17:17)
[2025-02-13] MEDS: LIPITOR 80 MG PO (17:17)
[2025-02-13] MEDS: NOVOLOG FLEXPEN-LOW RESISTANCE SC (17:44)
[2025-02-13] MEDS: ZESTRIL PO (22:17)
[2025-02-13 22:43] LABS: Glucose - Point of Care 153 mg/dl (70-99)
[2025-02-14] VITALS (13 sets, daily range): BP systolic 101–132; BP diastolic 71–91; BMI 41.4
--- NOTE | 2025-02-14 01:19 | PTCARENOTE ---
Pt. in NSR on the monitor, VSS, no complaints of chest pain. OOB with assist x 1 and quad cane, gait slightly unsteady. Fall precautions initiated. Pt. resting quietly.
[2025-02-14 03:58] LABS: Albumin 3.5 g/dl (3.5-5.0); Blood Urea Nitrogen 25 mg/dl (9-20); Calcium 9.3 mg/dl (8.4-10.2); Carbon Dioxide 23 mmol/L (22-30); Chloride 105 mmol/L (98-107); Estimated Creatinine Clearance 76 ml/min; Glucose 142 mg/dl (70-99); Potassium 4.5 mmol/L (3.5-5.1); Sodium 133 mmol/L (135-145); eGFR > 60.00
[2025-02-14 07:18] LABS: Glucose - Point of Care 144 mg/dl (70-99)
[2025-02-14] MEDS: SYNTHROID 125 MCG PO (07:20)
[2025-02-14 08:06] LABS: Hematocrit 51.8 % (39.0-52.0); Hemoglobin 17.4 g/dL (13.0-18.0); Mean Corp Hgb Conc. 33.6 g/dL (33.0-37.0); Mean Corpuscular Volume 94.2 fL (80.0-94.0); Nucleated Red Blood Cells % 0 % (-); Platelet Count 260 10^3/uL (130-400); Red Cell Dist. Width 13.6 % (11.5-14.5)
--- NOTE | 2025-02-14 08:13 | W.PN.CD ---
Today's Communication / Plan
-
For LAD PCI today
Continue Med Rx
Add Aldactone at discharge
Cardiac rehab
Consider Wegovy for his DM/CAD/Obesity
He will followup with his sole leveler machine, Dr. Schulz, his sole leveler machine, in the office
55 min spent caring for pt today
Impression / Plan
-
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
Acute NSTEMI
- Peak troponin 187
- Rx with successful LCx PCI of left circumflex
- LVEF at time of PCI by LV gram: 30-35%
- DAPT for 1 yr as tolerated
Acute ischemic cardiomyopathy
- Hope that most of it is STUNNING
- On SGLT2-I, HF BB, RAZA-I, will plan to add spironolactone at discharge
- Uptitrate meds at follow up visits
- Hope he is on max meds within 1-2 months
- Recheck LVEF 90 days from time on max meds to see if ICD discussion should be had
CAD
- Residual LAD and RCA disease
- I spoke with Dr. Subramanian. His impression is that the LAD has significant disease
- Dr. Davis feels LAD PCI should be pursued, I agree
- Discussed with pt and he agrees. PCI today
Old CVA, 2006, left sided deficits persist
DM
Mixed hyperlipidemia
- Goal LDL < 55 => statin dose just increased
Thyroid disease
Asthma
Diabetes
- His CAD with DM and obesity => appropriate for Wegovy
Obesity, BMI 31.6
Subjective:
No CP or dyspnea. Cath site is good
Physical Exam
Vital Signs/Labs
Vital Signs
Temp Pulse Resp BP Pulse Ox
98.8 F 82 15 107/71 93
02/14/25 08:12 02/14/25 08:12 02/14/25 08:12 02/14/25 02:59 02/14/25 08:12
02/13/25 02/14/25 02/15/25
06:59 06:59 06:59
Actual Weight 94.3 kg
02/14/25 07:53
02/14/25 03:17
APTT 26.9 Sec (23.4-35.0) 02/12/25 00:54
Triglycerides 74 mg/dl (10-149) 02/12/25 03:59
LDL Cholesterol, Calc 94 mg/dl 02/12/25 03:59
VLDL Cholesterol, Calc 14 mg/dl (0-30) 02/12/25 03:59
HDL Cholesterol 50 mg/dl 02/12/25 03:59
LAB Results
02/11/25 02/12/25 02/12/25
22:39 00:54 03:59
Troponin I 0.032 0.055 H* D 72.200 H* D
02/12/25 02/12/25
09:14 14:42
Troponin I 187.000 H* D 155.000 H*
Physical Exam
Constitutional: No acute distress
EENT: Anicteric
Cardiovascular: Rhythm & rate is regular and Pedal edema is absent
Respiratory: Respiratory effort normal and Lungs clear to auscul.
GI: Soft and Distention absent
Neuro/Psych: AO x 3
Data Reviewed
-
Date of Service: February 14, 2025
[2025-02-14 08:29] LABS: ACT-LR - POC > 397 Seconds (116-155)
[2025-02-14] MEDS: GLUCOTROL 7.5 MG PO (09:11)
[2025-02-14] MEDS: FLOMAX 0.4 MG PO (09:11)
[2025-02-14] MEDS: BRILINTA 90 MG PO ×2 (09:12→20:02)
[2025-02-14] MEDS: FARXIGA 5 MG PO (09:12)
[2025-02-14] MEDS: PROTONIX 40 MG PO (09:12)
[2025-02-14] MEDS: TOPROL XL 12.5 MG PO (09:12)
[2025-02-14] MEDS: NOVOLOG FLEXPEN-LOW RESISTANCE SC ×2 (09:12→13:54)
[2025-02-14] MEDS: LOW STRENGTH ASPIRIN 81 MG PO (09:13)
--- NOTE | 2025-02-14 11:58 | CM ---
Chart reviewed. Patient is independent of ADLS, lives with his sister in a split level, 2 [address]AL[address], ambulates with a 4 point cane. Plan is for the patient to return home. CM to follow
--- NOTE | 2025-02-14 12:17 | CM ---
Pricing on Brilinta through the patient's [facility], ID# [id number], is covered at $15.22. It is in stock at the patient's [facility].
[2025-02-14 12:26] LABS: ACT-LR - POC 343 Seconds (116-155)
--- NOTE | 2025-02-14 12:59 | ITS.CL.PN ---
Addendum entered and electronically signed by Alan Davis MD 02/15/25 17:32:
iFR of LAD
An Omni wire was flushed and zeroed outside the body and then advanced to the left main. The wire introducer was removed and the catheter flushed with saline, after which pressure of the wire and guide were normalized. The wire was advanced to the
mid LAD and iFR recorded at 0.88. iFR pullback was performed noting diffuse pattern with mild focal contribution from the 60% stenosis. On return to the left main, iFR appropriately normalized to ~1.0, confirming lack of wire drift. Given the
borderline positivity of the iFR in the mid LAD and the only minimal focal contribution from the single stenosis, decision was made to defer what would need to be long segment stenting and manage the vessel medically.
Original Note:
Orthodontist Assistant - Procedure Note
Procedure
Procedure Note:
CARDIAC CATHETERIZATION REPORT
Date of Procedure: 02/14/2025
Referring: Dr. Chris Chow MD
Indication: assessment of non-culprit disease status post STEMI for possible complete revascularization
PROCEDURE(S)
1. left heart catheterization
2. coronary angiography
3. iFR LAD
ACCESS: 6F right radial artery (closure: radial band)
CATHETERS
1. 6F pigtail
2. 6F EBU3.75 guide
MODERATE SEDATION: 30 minutes of moderate sedation was utilized. An independent medical laboratory manager was present to assist with and help manage the patient's level of consciousness and physiologic status.
HEMODYNAMIC DATA
LV 101/9 (EDP 16) mmHg
AO 106/71 (mean 86) mmHg
CORONARY ANGIOGRAPHY
Dominance: right
LM: large with mild distal tapering
LAD: large vessel giving rise to a moderate caliber D1 and small D2 before wrapping around the apex. There is a focal 60% stenosis just after S1 and diffuse moderate disease in the mid to distal vessel.
LCx: large vessel giving rise to a large branching marginal. There is a widely patent stent in the proximal LCx with TIMI3 flow distally.
RCA: known to be totally occluded proximally and not selectively engaged. Brisk L-R collaterals are visualized from the second septal supervisor asbestos removal.
RADIATION: dose 257 mGy; DAP 20.3 Gy*cm2; fluoroscopy time 4.5 min
CONCLUSIONS
1. Mildly elevated LV filling pressure and no aortic stenosis
2. Coronary artery disease status post PCI with widely patent LCx stent and borderline severity disease in the proximal to mid-LAD
3. iFR assessment with diffuse pattern of positivity throughout the prox to mid LAD without focally severe stenosis
RECOMMENDATIONS
1. Cont. DAPT and aggressive secondary prevention of CAD
2. Medical management of non-culprit LAD and RCA disease
Copy to: Dr. Dada Hdz MD (paper roller); Dr. Lacho Castaneda DO (PCP)
Signed: Alan Davis MD, PhD
[2025-02-14 13:30] LABS: Glucose - Point of Care 186 mg/dl (70-99)
[2025-02-14 13:31] LABS: Glucose - Point of Care 160 mg/dl (70-99)
[2025-02-14 13:56] LABS: Glucose - Point of Care 142 mg/dl (70-99)
[2025-02-14] MEDS: ZESTRIL PO (15:40)
[2025-02-14 16:46] LABS: Glucose - Point of Care 180 mg/dl (70-99)
[2025-02-14] MEDS: NOVOLOG FLEXPEN-LOW RESISTANCE 1 UNITS SC (16:50)
[2025-02-14] MEDS: LOVENOX 40 MG SC (18:14)
[2025-02-14] MEDS: LIPITOR 80 MG PO (18:14)
[2025-02-14] MEDS: ZESTRIL 2.5 MG PO (20:02)
--- NOTE | 2025-02-14 21:15 | PTCARENOTE ---
Rec'd pt at change of shift. Pt AAO*3, VSS, and SR on TELE monitor. pt with R radial site CDI and denies any pain/discomfort. Pt agree to R upper extremity restrictions. Now resting with call weber in reach. See MAR and flowchart for full pt
care and assessment.
[2025-02-14 22:53] LABS: Glucose - Point of Care 142 mg/dl (70-99)
[2025-02-15] VITALS (7 sets, daily range): BP systolic 112–128; BP diastolic 75–97; BMI 41.6
[2025-02-15 03:32] LABS: Hematocrit 49.5 % (39.0-52.0); Hemoglobin 17.1 g/dL (13.0-18.0); Mean Corp Hgb Conc. 34.5 g/dL (33.0-37.0); Mean Corpuscular Volume 92.5 fL (80.0-94.0); Platelet Count 263 10^3/uL (130-400); Red Cell Dist. Width 13.5 % (11.5-14.5)
[2025-02-15 03:53] LABS: Blood Urea Nitrogen 19 mg/dl (9-20); Calcium 9.1 mg/dl (8.4-10.2); Carbon Dioxide 21 mmol/L (22-30); Chloride 107 mmol/L (98-107); Estimated Creatinine Clearance 63 ml/min; Glucose 159 mg/dl (70-99); Potassium 4.4 mmol/L (3.5-5.1); Sodium 135 mmol/L (135-145); eGFR > 60.00
[2025-02-15] MEDS: SYNTHROID 125 MCG PO (06:34)
[2025-02-15 07:52] LABS: Glucose - Point of Care 144 mg/dl (70-99)
--- NOTE | 2025-02-15 08:17 | W.PN.CD ---
Today's Communication / Plan
-
- Successful DAHLIA to LCX on 02/12/2025; no obstructive CAD noted on repeat catheterization yesterday.
- Continue DAPT for 1 year.
- Atorvastatin increased from 40 mg daily to 80 mg daily.
- Will add spironolactone 12.5 mg today.
- Mild sinus tachycardia on telemetry overnight; continue current dose of metoprolol succinate (unable to increase dose secondary to blood pressure limitations).
- Will observe 1 more day on telemetry with continued medical optimization; likely discharge home tomorrow.
Impression / Plan
-
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
CAD/acute NSTEMI
- Peak troponin 187
- Successful DAHLIA to LCX on 02/12/2025; no obstructive CAD noted on repeat catheterization yesterday.
- Continue DAPT for 1 year.
- Atorvastatin increased from 40 mg daily to 80 mg daily.
Acute ischemic cardiomyopathy (EF 35-40%):
- Hope that most of it is STUNNING
- On SGLT2-I, HF BB, RAZA-I.
- Will add spironolactone 12.5 mg today.
- Mild sinus tachycardia on telemetry overnight; continue current dose of metoprolol succinate (unable to increase dose secondary to blood pressure limitations).
- Will observe 1 more day on telemetry with continued medical optimization; likely discharge home tomorrow.
- No indication for ICD as LVEF is greater than 35% on echo.
Old CVA, 2006, left sided deficits persist
Mixed hyperlipidemia
- Goal LDL < 55 => statin dose just increased.
Thyroid disease
Asthma
Diabetes
- His CAD with DM and obesity => appropriate for Wegovy
- Resume glipizide on discharge. -
Obesity, BMI 31.6
Subjective:
No major events overnight. No cardiac complaints this a.m.
Physical Exam
Vital Signs/Labs
Vital Signs
Temp Pulse Resp BP Pulse Ox
98.9 F 94 18 128/97 95
02/15/25 07:49 02/15/25 07:49 02/15/25 07:49 02/15/25 03:05 02/15/25 07:49
02/14/25 02/15/25 02/16/25
06:59 06:59 06:59
Actual Weight 94.3 kg 93.3 kg
02/15/25 03:14
02/15/25 03:14
APTT 26.9 Sec (23.4-35.0) 02/12/25 00:54
Triglycerides 74 mg/dl (10-149) 02/12/25 03:59
LDL Cholesterol, Calc 94 mg/dl 02/12/25 03:59
VLDL Cholesterol, Calc 14 mg/dl (0-30) 02/12/25 03:59
HDL Cholesterol 50 mg/dl 02/12/25 03:59
LAB Results
02/12/25 02/12/25
09:14 14:42
Troponin I 187.000 H* D 155.000 H*
Physical Exam
Constitutional: No acute distress and Comfortable
EENT: Anicteric
Cardiovascular: Rhythm & rate is regular, Pedal edema is absent, Systolic murmur absent and S1S2 is normal
Respiratory: Respiratory effort normal and Rhonchi Present (Mild bibasilar)
GI: Soft
Neuro/Psych: AO x 3
Other: Skin (Warm, dry, intact)
Data Reviewed
-
Date of Service: February 15, 2025
Echo: Report Reviewed by me (EF 35-40%, mild MR)
Medical Tests (PFT, Pathology etc): Discussed with Patient
Labs: Labs Reviewed by me
[2025-02-15] MEDS: NOVOLOG FLEXPEN-LOW RESISTANCE SC (08:35)
[2025-02-15] MEDS: ZESTRIL 2.5 MG PO ×2 (08:45→19:24)
[2025-02-15] MEDS: ALDACTONE 12.5 MG PO (08:45)
[2025-02-15] MEDS: PROTONIX 40 MG PO (08:47)
[2025-02-15] MEDS: GLUCOTROL 7.5 MG PO (08:47)
[2025-02-15] MEDS: FLOMAX 0.4 MG PO (08:48)
[2025-02-15] MEDS: FARXIGA 5 MG PO (08:51)
[2025-02-15] MEDS: BRILINTA 90 MG PO ×2 (08:52→19:24)
[2025-02-15] MEDS: LOW STRENGTH ASPIRIN 81 MG PO (08:53)
[2025-02-15] MEDS: TOPROL XL 12.5 MG PO (08:56)
--- NOTE | 2025-02-15 11:01 | CM ---
Chart reviewed. Patient lying in bed, independent of ADLS, lives with his sister in a split level home, 2 ROSAL[address], ambulates with a 4 prong cane. Plan is for the patient to return home. CM to follow
[2025-02-15 12:18] LABS: Glucose - Point of Care 201 mg/dl (70-99)
[2025-02-15] MEDS: NOVOLOG FLEXPEN-LOW RESISTANCE 2 UNITS SC ×2 (12:28→17:10)
--- NOTE | 2025-02-15 15:50 | PTCARENOTE ---
02/15/2025 DIABETES EDUCATION CONSULTATION
I met with patient to review diabetes management. States he has had DM for 19 years.
I educated on physiology of T2D, organ damage, managing with medications, monitoring BG, nutrition, activity, sleep and managing stress. I reinforced signs of hyperglycemia, hypoglycemia and hypoglycemia protocol; BS parameters and recommended HbA1c
goals, glucometer and CGM instructions, glucose tracker, medic alert bracelet and outpatient DSME program. Written material provided.
He states he used to monitor his blood sugar, but lost his meter and never requested a new meter. I provided patient with a [employer] glucometer sample kit. Provided verbal instructions on proper blood sugar testing technique. He declined
demonstration, states he knows how to check his glucose.
He takes Farxiga and Glipizide at home. I provided education on mechanism of action, timing of meds and side effects. He previously was taking Mounjaro and had severe GI side effects. Declined alternative GLP1-RA medications.
He states he takes a lot of supplements, prefers to take natural products. I educated that diabetes is progressive and medication helps to manage his glucose. Educated to discuss all supplements with his providers as they may interact with his
prescribed medications. He also eats 8-10 fruits a day. I also educated that this is a lot of sugar, even natural sugar. He believes this is OK due to fiber content. I suggested he increase his vegetable intake to increase fiber without increasing
his sugar. He also states that he drinks pink sea salt with water before bed and thinks this has helped him lose 3 lbs in the past 3 weeks.
Encouraged patient to follow up with his PCP for post d/c appointment and to monitor medication and blood glucose levels. Provided list of endocrinologists if desired, to contact insurance company to verify in network status.
--- NOTE | 2025-02-15 17:00 | PTCARENOTE ---
Pt received this am oob ad benita. Right rad site WNL. Denies any chest pain or discomfort.
[2025-02-15 17:01] LABS: Glucose - Point of Care 203 mg/dl (70-99)
[2025-02-15] MEDS: LOVENOX 40 MG SC (17:08)
[2025-02-15] MEDS: LIPITOR 80 MG PO (17:08)
[2025-02-15 21:36] LABS: Glucose - Point of Care 165 mg/dl (70-99)
--- NOTE | 2025-02-16 00:28 | PTCARENOTE ---
Assumed care of pt at change of shift. Pt AAOx3, VSS,and sating 94-95% RA. Pt denies any pain or SOB. Tele monitor shows NSR, HR in the 80-90's at rest. Right radial dressing C/D/I. Pt aware of activity restrictions. Call weber in reach.
[2025-02-16 03:03] VITALS: BP 123/81
[2025-02-16 06:00] VITALS: BMI 40.9
[2025-02-16] MEDS: SYNTHROID 125 MCG PO (06:13)
--- NOTE | 2025-02-16 07:50 | PTCARENOTE ---
Assumed care of pt from prev nsg shift; Pt AAOx3 w/no c/o CP or SOB. Pt's VS stable w/HR in the 80's-90's & BP 116/87 this AM. Pt is SR on telemetry monitoring. Pt w/R radial access site w/dressing C/D/I w/no signs or symptoms of bleeding or
hematoma. Pt anticipating D/C to home today. No addtl needs at this time. Plan of care ongoing.
[2025-02-16 08:00] VITALS: BP 116/87
[2025-02-16 08:03] LABS: Glucose - Point of Care 156 mg/dl (70-99)
--- NOTE | 2025-02-16 08:53 | W.PN.CD ---
Today's Communication / Plan
-
- Continue DAPT for 1 year.
- Continue atorvastatin 80 mg daily.
- Mild sinus tachycardia on telemetry overnight; will increase metoprolol succinate from 12.5 mg daily to 25 mg daily.
- Stable for discharge home today.
Impression / Plan
-
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
CAD/acute NSTEMI
- Peak troponin 187
- Successful DAHLIA to LCX on 02/12/2025; no obstructive CAD noted on repeat catheterization 02/14/2025.
- Continue DAPT for 1 year.
- Continue atorvastatin 80 mg daily.
Acute ischemic cardiomyopathy (EF 35-40%):
- Hope that most of it is STUNNING
- On SGLT2-I, HF BB, RAZA-I.
- Continue spironolactone 12.5 mg daily and lisinopril 2.5 mg daily.
- Mild sinus tachycardia on telemetry overnight; will increase metoprolol succinate from 12.5 mg daily to 25 mg daily.
- No indication for ICD as LVEF is greater than 35% on echo.
Old CVA, 2005, left sided deficits persist
Mixed hyperlipidemia
- Goal LDL < 55 => statin dose just increased.
Thyroid disease
Asthma
Diabetes
- His CAD with DM and obesity => appropriate for Wegovy
- Resume glipizide on discharge. -
Obesity, BMI 31.6
Subjective:
No major events overnight. Remains asymptomatic from a cardiac standpoint.
Physical Exam
Vital Signs/Labs
Vital Signs
Temp Pulse Resp BP Pulse Ox
98.2 F 94 18 116/87 95
02/16/25 08:04 02/16/25 08:04 02/16/25 08:04 02/16/25 08:00 02/16/25 08:04
02/15/25 02/16/25 02/17/25
06:59 06:59 06:59
Actual Weight 93.3 kg 91.7 kg
02/15/25 03:14
02/15/25 03:14
APTT 26.9 Sec (23.4-35.0) 02/12/25 00:54
Triglycerides 74 mg/dl (10-149) 02/12/25 03:59
LDL Cholesterol, Calc 94 mg/dl 02/12/25 03:59
VLDL Cholesterol, Calc 14 mg/dl (0-30) 02/12/25 03:59
HDL Cholesterol 50 mg/dl 02/12/25 03:59
Physical Exam
Constitutional: No acute distress and Comfortable
EENT: Anicteric
Cardiovascular: Rhythm & rate is regular, Pedal edema is absent, Systolic murmur absent and S1S2 is normal
Respiratory: Respiratory effort normal and Lungs clear to auscul.
GI: Soft
Neuro/Psych: AO x 3
Other: Skin (Warm, dry, intact)
Data Reviewed
-
Date of Service: February 16, 2025
EKG: Tracing Personally Visualized and interpreted (Sinus rhythm/sinus tachycardia)
Echo: Report Reviewed by me (EF 35-40%)
Medical Tests (PFT, Pathology etc): Discussed with Patient
Labs: Labs Reviewed by me
[2025-02-16] MEDS: PROTONIX 40 MG PO (09:43)
[2025-02-16] MEDS: TOPROL XL 25 MG PO (09:44)
[2025-02-16] MEDS: ALDACTONE 12.5 MG PO (09:44)
[2025-02-16] MEDS: ZESTRIL 2.5 MG PO (09:44)
[2025-02-16] MEDS: FARXIGA 5 MG PO (09:44)
[2025-02-16] MEDS: BRILINTA 90 MG PO (09:44)
[2025-02-16] MEDS: GLUCOTROL 7.5 MG PO (09:44)
[2025-02-16] MEDS: FLOMAX 0.4 MG PO (09:47)
[2025-02-16] MEDS: LOW STRENGTH ASPIRIN 81 MG PO (09:47)
[2025-02-16] MEDS: NOVOLOG FLEXPEN-LOW RESISTANCE 1 UNITS SC (09:47)
[2025-02-16] MEDS: TOPROL XL PO (09:54)
--- NOTE | 2025-02-16 10:29 | CM ---
Chart reviewed. Patient is independent of ADLS, lives with a sister in a split level, 4 prong cane, 2 ROSALINO, 0 DME. Plan is for the patient to return home. CM to follow
--- NOTE | 2025-02-16 11:02 | W.DS.TRANS ---
DC Summary - Him Assistant
-
Discharge Instructions:
Discharge Diagnosis/Procedures NSTEMI, coronary artery disease
Procedure: Cardiac catheterization 02/12/2025
with angioplasty and stent to left circumflex
artery
Ischemic cardiomyopathy
Diet Low Cholesterol,Diabetic, Carb Controlled,2 Gram
Sodium,Restrict fluids to 64 oz
Activity No strenuous activity
Additional Activity See attached instructions.
Driving Restrictions No driving for 24 hours
Bathing Restrictions OK to Shower
Blood Work Renal profile 1 week- lab slip sent
electronically to [facility]ospital ([facility])- if you
need it sent elsewhere call cardiology office.
Other Services Cardiac Rehab
Specialty Instructions Weigh Daily
Instructions:
Stand-Alone Forms: DC Instructions- Cath/EP Lab
Return to Work
Changes to Home Medications: Yes
Discharge Medications:
DC Medications w/original date entered in [employer]
dapagliflozin propanediol 5 mg tablet 5 mg PO DAILY Diabetes 02/11/25
glipizide 5 mg tablet 7.5 mg PO DAILY Diabetes 02/11/25
levothyroxine 125 mcg tablet 125 mcg PO DAILY@06 Thyroid 02/11/25
tamsulosin 0.4 mg capsule 0.4 mg PO DAILY Urinary Issue 02/11/25
ticagrelor 90 mg tablet 90 mg PO BID #60 tabs 02/14/25
aspirin 81 mg chewable tablet 81 mg PO DAILY #90 tabs 02/16/25
atorvastatin 80 mg tablet 80 mg PO QPM #30 tabs 02/16/25
lisinopril 2.5 mg tablet 2.5 mg PO BID #60 tabs 02/16/25
metoprolol succinate 25 mg tablet,extended release 24 hr 25 mg PO DAILY #30 tabs 02/16/25
nitroglycerin 0.4 mg sublingual tablet (Nitrostat) 0.4 mg sublingual Q5M PRN chest discomfort #25 tabs 02/16/25
pantoprazole 40 mg tablet,delayed release 40 mg PO DAILY #30 tabs 02/16/25
spironolactone 25 mg tablet 12.5 mg (1/2 x 25 mg) PO DAILY #15 tabs 02/16/25
Home Medication Changes
aspirin, Brilinta, metoprolol, spironolactone, pantoprazole, nitro PRN all new
Lisinopril dose decrease, atorvastatin dose increased
Aggrenox stopped
Pending Results: No
[2025-02-16 11:15] VITALS: BP 131/87
[2025-02-16] MEDS: NOVOLOG FLEXPEN-LOW RESISTANCE SC (12:45)
--- NOTE | 2025-02-16 14:12 | PTCARENOTE ---
Pt's IV line & case monitor D/C'd. Discussed pt's D/C instructions w/pt. Pt questioned his return work note bec he stated he needed it to say 'can return to work without restrictions'. Pt also requesting that note state 'he would be 1/2 days
the first week back, then adding 1 hr daily per week until pt is back to full 7.5 hrs/day'. This RN notified [employer] DOOR REPAIRMAN. Pt needed to leave because his transportation was waiting, so he stated he 'would speak directly to the Dr or
DOOR REPAIRMAN about the note'. Pt left w/personal belongings incl cell phone. Pt escorted out via WC by staff.
== END 2025-02-16 14:16 | disposition home or self-care (01) | DRG 322 ==
LOC: IVU 01:57
PROVIDERS: Nurse Practitioner; Student in an Organized Health Care Education/Training Program; ADMITTING PHYSICIAN Internal Medicine Interventional Cardiology; ATTENDING PHYSICIAN Internal Medicine Cardiovascular Disease; EMERGENCY PHYSICIAN Emergency Medicine; FAMILY PHYSICIAN Family Medicine
PROC: B2151ZZ Fluoroscopy of Left Heart using Low Osmolar Contrast (ICD-10-PCS; 2025-02-12)
PROC: B2111ZZ Fluoroscopy of Multiple Coronary Arteries using Low Osmolar Contrast (ICD-10-PCS; 2025-02-12)
PROC: 4A023N7 Measurement of Cardiac Sampling and Pressure, Left Heart, Percutaneous Approach (ICD-10-PCS; 2025-02-12)
PROC: 027034Z Dilation of Coronary Artery, One Artery with Drug-eluting Intraluminal Device, Percutaneous Approach (ICD-10-PCS; 2025-02-12)
PROC: 4A033BC Measurement of Arterial Pressure, Coronary, Percutaneous Approach (ICD-10-PCS; 2025-02-14)
DX: I21.4 Non-ST elevation (NSTEMI) myocardial infarction (principal); Z68.41 Body mass index [BMI] 40.0-44.9, adult; I25.10 Atherosclerotic heart disease of native coronary artery without angina pectoris; I25.5 Ischemic cardiomyopathy; Z86.73 Personal history of transient ischemic attack (TIA), and cerebral infarction without residual deficits; J45.909 Unspecified asthma, uncomplicated; E11.9 Type 2 diabetes mellitus without complications; E66.01 Morbid (severe) obesity due to excess calories; Z79.84 Long term (current) use of oral hypoglycemic drugs; Z82.49 Family history of ischemic heart disease and other diseases of the circulatory system; Z83.3 Family history of diabetes mellitus; Z79.82 Long term (current) use of aspirin; E78.00 Pure hypercholesterolemia, unspecified; E03.9 Hypothyroidism, unspecified; I10 Essential (primary) hypertension; Z11.52 Encounter for screening for COVID-19
CPT/HCPCS: 80048; 80053; 80061; 80069; 82962; 83036; 83690; 84443; 84484; 85025; 85027; 85347; 85379; 85730; 87811; 93005; 93306; 93458; 93799; 96361; 96374; 96375; 99152; 99153; 99291; C1725; C1769; C1874; C1894; C9600; Q9967

== ENCOUNTER → 2025-02-23 12:28 | Outpatient (REF) | payer BC, SELFPAY | LOC: RAD 12:28 | PROVIDERS: ATTENDING PHYSICIAN Internal Medicine Cardiovascular Disease; FAMILY PHYSICIAN Family Medicine | DX: Z91.89 Other specified personal risk factors, not elsewhere classified (principal) | CPT/HCPCS: 93926 ==

== ENCOUNTER → 2025-03-01 10:39 | Outpatient (REF) | payer BC, SELFPAY ==
[2025-03-01 12:22] LABS: Blood Urea Nitrogen 19 mg/dl (9-20); Calcium 9.2 mg/dl (8.4-10.2); Carbon Dioxide 23 mmol/L (22-30); Chloride 102 mmol/L (98-107); Glucose 135 mg/dl (70-99); Potassium 4.8 mmol/L (3.5-5.1); Sodium 135 mmol/L (135-145); eGFR > 60.00
== END ==
LOC: REG 10:39
PROVIDERS: ATTENDING PHYSICIAN Internal Medicine; FAMILY PHYSICIAN Family Medicine
DX: I25.5 Ischemic cardiomyopathy (principal)
CPT/HCPCS: 36415; 80048

== ENCOUNTER → 2025-03-15 06:19 | Outpatient (REF) | payer BC, SELFPAY ==
[2025-03-15 07:08] LABS: Hematocrit 49.1 % (39.0-52.0); Hemoglobin 16.8 g/dL (13.0-18.0); Mean Corp Hgb Conc. 34.2 g/dL (33.0-37.0); Mean Corpuscular Volume 93.2 fL (80.0-94.0); Nucleated Red Blood Cells % 0 % (-); Platelet Count 253 10^3/uL (130-400); Red Cell Dist. Width 13.6 % (11.5-14.5)
[2025-03-15 07:24] LABS: Microalb - Urine Creatinine 75.700 mg/dl
[2025-03-15 07:30] LABS: Microalbumin, Random Urine 0.8 mg/dl (0.6-1.7)
[2025-03-15 07:34] LABS: ALT (SGPT) 33 U/L (0-50); AST (SGOT) 31 U/L (17-59); Albumin 4.5 g/dl (3.5-5.0); Alkaline Phosphatase 116 U/L (38-126); Blood Urea Nitrogen 22 mg/dl (9-20); Calcium 9.9 mg/dl (8.4-10.2); Carbon Dioxide 25 mmol/L (22-30); Chloride 104 mmol/L (98-107); Glucose 166 mg/dl (70-99); HDL Cholesterol 45 mg/dl; LDL Cholesterol, Calculated 80 mg/dl; Magnesium 2.1 mg/dl (1.6-2.3); Potassium 5.1 mmol/L (3.5-5.1); Sodium 136 mmol/L (135-145); Total Protein 8.1 g/dl (6.3-8.2); Very Low Density Lipoprotein 40 mg/dl (0-30); eGFR > 60.00
[2025-03-15 09:20] LABS: Glycohemoglobin (HgbA1c) 8.9 % (4.0-5.6)
== END ==
LOC: REG 06:19
PROVIDERS: ATTENDING PHYSICIAN Family Medicine
DX: I21.3 ST elevation (STEMI) myocardial infarction of unspecified site (principal); I63.9 Cerebral infarction, unspecified; R93.1 Abnormal findings on diagnostic imaging of heart and coronary circulation; E11.69 Type 2 diabetes mellitus with other specified complication; I11.9 Hypertensive heart disease without heart failure; Z95.5 Presence of coronary angioplasty implant and graft
CPT/HCPCS: 36415; 80053; 80061; 82043; 82570; 83036; 83735; 84100; 84443; 85025

== ENCOUNTER 2025-03-23 17:53 | Outpatient (RCR) | payer BC, SELFPAY ==
[2025-03-02 10:19] LABS: Glucose - Point of Care 159 mg/dl (70-99)
[2025-03-02 10:50] LABS: Glucose - Point of Care 150 mg/dl (70-99)
[2025-03-07 17:37] LABS: Glucose - Point of Care 151 mg/dl (70-99)
[2025-03-07 18:16] LABS: Glucose - Point of Care 125 mg/dl (70-99)
[2025-03-09 17:40] LABS: Glucose - Point of Care 169 mg/dl (70-99)
[2025-03-09 18:26] LABS: Glucose - Point of Care 140 mg/dl (70-99)
[2025-03-14 17:33] LABS: Glucose - Point of Care 195 mg/dl (70-99)
[2025-03-14 18:14] LABS: Glucose - Point of Care 161 mg/dl (70-99)
[2025-03-16 17:35] LABS: Glucose - Point of Care 214 mg/dl (70-99)
[2025-03-16 18:30] LABS: Glucose - Point of Care 232 mg/dl (70-99)
[2025-03-21 17:34] LABS: Glucose - Point of Care 127 mg/dl (70-99)
[2025-03-21 18:22] LABS: Glucose - Point of Care 107 mg/dl (70-99)
== END 2025-03-23 23:59 | disposition home or self-care (01) ==
LOC: CRHB 17:53
PROVIDERS: ATTENDING PHYSICIAN Internal Medicine
DX: I21.4 Non-ST elevation (NSTEMI) myocardial infarction (principal); I25.2 Old myocardial infarction (principal); Z95.5 Presence of coronary angioplasty implant and graft
CPT/HCPCS: 82962; 93797; 93798

== ENCOUNTER 2025-04-11 18:12 | Outpatient (RCR) | payer BC, SELFPAY | END 2025-04-11 23:59 | disposition home or self-care (01) | LOC: CRHB 18:12 | PROVIDERS: ATTENDING PHYSICIAN Internal Medicine; FAMILY PHYSICIAN Family Medicine | DX: I21.4 Non-ST elevation (NSTEMI) myocardial infarction (principal); I25.2 Old myocardial infarction (principal); Z95.5 Presence of coronary angioplasty implant and graft | CPT/HCPCS: 93797; 93798 ==

== ENCOUNTER 2025-04-15 06:26 | Day surgery (SDC) | payer BC, SELFPAY ==
[2025-04-13 10:20] VITALS: BMI 32.7
[2025-04-15] VITALS (10 sets, daily range): BP systolic 96–130; BP diastolic 75–104; BMI 32.6
[2025-04-15 07:12] LABS: Glucose - Point of Care 204 mg/dl (70-99)
[2025-04-15] MEDS: NSS 283 ML IV (07:24)
[2025-04-15 08:29] LABS: ACT-LR - POC 287 Seconds (116-155)
[2025-04-15 09:08] LABS: ACT-LR - POC > 397 Seconds (116-155)
[2025-04-15] MEDS: NSS 1000 IV (09:42)
--- NOTE | 2025-04-15 13:07 | ITS.CL.PN ---
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
Procedure
Procedure Note:
CARDIAC CATHETERIZATION REPORT
Date of Procedure: 04/15/2025
Referring: Dr. Dada Schulz MD
Indication: progressive anginal chest pain, known obstructive coronary artery disease
PROCEDURE(S)
1. left heart catheterization
2. coronary angiography
3. IVUS LAD
4. Shockwave lithotripsy LAD
5. PCI with DAHLIA to LAD
ACCESS: 6F right radial artery (closure: radial band)
CATHETERS
1. 6F JR4
2. 6F EBU3.75 guide catheter
MODERATE SEDATION: 45 minutes of moderate sedation was utilized. An independent medical microbiologist was present to assist with and help manage the patient's level of consciousness and physiologic status.
HEMODYNAMIC DATA
LV 111/6 (EDP 10) mmHg
AO 103/67 (mean 84) mmHg
CORONARY ANGIOGRAPHY
Dominance: Right
LM: Large, normal
LAD: Large vessel giving rise to a moderate caliber diagonal and wrapping around the apex. There is an eccentric 70% calcified focal stenosis at the takeoff of the S1 previously found to be iFR positive. The continuation of the mid LAD has diffuse
moderate disease.
LCx: Large vessel giving rise to a single large branching marginal. There is a widely patent stent extending from the proximal circumflex into the marginal.
RCA: Large vessel totally occluded in the mid section with [id number] collaterals supplied via LAD septals.
IVUS-guided PCI with Shockwave lithotripsy and DAHLIA to LAD
Heparin was given to achieve ACT greater than 300. A Runthrough wire was placed in the distal LAD. Initial lesion preparation was performed with a 2.5 mm semi-compliant balloon with full expansion. IVUS was performed demonstrating near concentric
calcification at the lesion site and a reference vessel diameter of 3.75 mm. Further lesion preparation was performed with a 3.5 mm noncompliant balloon inflated to 16 [place]ol[place] with a small waist noted at the site of severe calcification. Thus, shockwave
lithotripsy was performed with a 4.0 x 12 mm balloon with 60 total pulses delivered. The shockwave balloon was noted to fully expand. Stenting was then performed with a 3.5 x 22 mm Mihai frontier drug-eluting stent. Repeat IVUS demonstrated mild
undersizing and mild underexpansion at the site of most severe calcification. Thus, postdilation was performed with a 3.75 mm NC balloon to 16 carolina throughout and to 20 carolina in the midportion. Final angiographic result was excellent with full stent
expansion and no evidence of edge dissection. The wire and guide were removed and a TR band placed.
RADIATION: dose 912 mGy; DAP 51 Gy*cm2; fluoroscopy time 16.8 min
CONCLUSIONS
1. Obstructive coronary artery disease as described with further progression of subtotal occlusion of the RCA, now totally occluded, widely patent circumflex stent, and focal severe calcific stenosis in the proximal LAD.
2. Normal LV filling pressure and no aortic stenosis.
3. Successful IVUS-guided PCI with Shockwave lithotripsy (4.0 mm lithotripsy balloon) and DAHLIA (3.5 x 22 mm [place] frontier postdilated with a 3.75 mm NC balloon to high-pressure) to proximal LAD
RECOMMENDATIONS
1. Continue DAPT with aspirin and ticagrelor for 1 year after date of index AR.
2. Aggressive secondary prevention of coronary artery disease.
3. Should patient have continued anginal symptoms, recommend titration of anti-anginal medication. Should patient have refractory angina despite optimal medical therapy, antegrade wire escalation TOUR DRIVER PCI of the RCA could be considered utilizing dual
injection angiography.
Copy to: Dr. Dada Schulz MD (back sizer); Dr. Lacho Castaneda DO (PCP)
Signed: Alan Davis MD, PhD
--- NOTE | 2025-04-15 13:25 | W.PN.UPDATE ---
Update Note
Progress Note Update
Pt seen post LAD PCI. Right radial cath site without ht/bleeding, non tender. OOB ambulating, urinating without difficulty. Post EKG NSR 90, no acute changes. To remain on uninterrupted DAPT w/asa, brilinta as before. Cardiac rehab consulted.
Followup at [facility] as scheduled. Home today if cath site/tele remain stable.
== END 2025-04-15 15:05 | disposition home or self-care (01) ==
LOC: CATH 06:26
PROVIDERS: ATTENDING PHYSICIAN Student in an Organized Health Care Education/Training Program; FAMILY PHYSICIAN Family Medicine; OTHER PHYSICIAN Internal Medicine
DX: I25.110 Atherosclerotic heart disease of native coronary artery with unstable angina pectoris (principal); Z95.5 Presence of coronary angioplasty implant and graft; I69.854 Hemiplegia and hemiparesis following other cerebrovascular disease affecting left non-dominant side; I25.5 Ischemic cardiomyopathy; E78.5 Hyperlipidemia, unspecified; E66.9 Obesity, unspecified; Z68.32 Body mass index [BMI] 32.0-32.9, adult; Z79.84 Long term (current) use of oral hypoglycemic drugs; E03.9 Hypothyroidism, unspecified; N40.0 Benign prostatic hyperplasia without lower urinary tract symptoms; K76.0 Fatty (change of) liver, not elsewhere classified; K21.9 Gastro-esophageal reflux disease without esophagitis; Z79.82 Long term (current) use of aspirin; Z79.899 Other long term (current) drug therapy; Z79.890 Hormone replacement therapy; Z79.02 Long term (current) use of antithrombotics/antiplatelets; Z82.49 Family history of ischemic heart disease and other diseases of the circulatory system; I25.2 Old myocardial infarction; I50.22 Chronic systolic (congestive) heart failure; E11.65 Type 2 diabetes mellitus with hyperglycemia
CPT/HCPCS: 92978; 92972; 99153; 99152; 82962; 85347; 93005; 93458; C1725; C1761; C1769; C1874; C1894; C9600; Q9967

== ENCOUNTER 2025-04-23 23:21 | Emergency (ER) | payer BC, SELFPAY ==
[2025-04-23 23:24] VITALS: BP 118/65
[2025-04-24 00:20] VITALS: BMI 32.7
--- NOTE | 2025-04-24 00:30 | EDRN ---
04/15/25 pt had a stent placed. Friday, pt received a call to see how he was doing and informed staff the puncture site his R wrist was raised and warm to touch. Pt advised to call doctor's office. Paunch Trimmer called pt and said if it
was not looking better by Friday, he should go to the ED. Friday night, the area opened and drained. Friday, pt called the inside phone sales and was seen in the office. Pt placed on kelfex and told if it does not heal by Friday to go to the
ED. Pt says the area is still open and there is still discharge described as blood, sometimes clear liquid. Area is painful and pt noted hard area in the vicinity of the puncture site. No fever/chills/cough.
[2025-04-24 00:56] LABS: Glucose - Point of Care 302 mg/dl (70-99)
--- NOTE | 2025-04-24 01:00 | ED.GENMED ---
History of Present Illness
General
Chief Complaint: Skin Problem
Source: patient and records
Exam Limitations: none
Time Seen by Provider: 04/24/25 00:35
Nursing documentation reviewed up to this point in time: agreed with
History of Present Illness
History of Present Illness:
65-year-old male diabetic CAD status post cath right wrist site Dr. Castro, postprocedurally developed a redness seen by cardiology started on Keflex overall is doing better less drainage, no pain told to come to the ER if his symptoms persisted,
been on Keflex for a few days, no fevers no nausea no vomiting no history of MRSA infection
Past History
Past History
ED Past Medical History: CVA, HTN, Hypercholesterolemia and NIDDM; Negative [place]
ED Past Surgical History: Negative Cardiac
Social History
Tobacco: Non-smoker
Alcohol: None
Drug: None
Personal: Other
Living: with family
Employment: Employed (Works at [employer])
Family History
Family History: Hypertension
Review of Systems
Review of Systems
All Other Systems: Not applicable
Constitutional: Denies fever or fatigue
Skin: Reports other (Drainage)
Phy Exam
Physical Exam
Physical Exam:
Physical Exam
General: no apparent distress, not acutely ill
Neck: No jaundice
Heart: s1/s2 regular rate and rhythm, no murmur. equal radial pulses.
Lungs: no acute respiratory distress. clear bilaterally
Neuro: alert and oriented. no focal neurological deficits
Skin: no rash
Psychiatric: well kept. interactive and cooperative
Extremities: Right wrist, 0.3 mm circular area with scant drainage no fluctuance proximal to the area there is swelling with no tenderness radial pulses strong hand appears well-perfused warm
Course
Orders/Labs/Results
Orders:
Orders
04/24/25 00:57
Wound Culture [Wound/Abscess/Other Culture] Routine
DURGA Source: Hematoma
Specimen Description:
Date Specimen was Collected: 04/24/25
Time Specimen was Collected: 00:59
04/24/25 00:58
Doxycycline [Vibramycin] 100 mg PO NOW STA
Abnormal Lab Results
04/24/25
00:54
POC Glucose 302 H mg/dl
(70-99)
Vital Signs
Initial and Last Documented VS:
Initial Vital Signs
Temp Pulse Resp BP Pulse Ox
98.7 F 79 20 118/65 96
04/23/25 23:24 04/23/25 23:24 04/23/25 23:24 04/23/25 23:24 04/23/25 23:24
Last Documented Vital Signs
Temp Pulse Resp BP Pulse Ox
98.7 F 79 16 119/71 98
04/23/25 23:24 04/24/25 01:07 04/24/25 01:07 04/24/25 01:07 04/24/25 01:07
MDM/Problems Addressed
Differential Diagnosis Includes:
Postop cellulitis abscess seroma
MDM/Problems Addressed:
Short radial access cath with drainage cath
Chronic conditions affecting care: DM, HTN and CAD
Acute Exacerbation and/or Progression of Chronic Illness: DM, HTN and CAD
*Pulse Oximetry
SaO2: 96
Oxygen Mode of Delivery: Room air
Patient hypoxic: no
*Critical Care Note
Total Time (30-74mins, 75-104mins- exclusive of procedures): Not Applicable
Update Note
Update Note:
Update patient with some drainage which was cultured will broaden to MRSA coverage, he is nontoxic, nonfasting sugar is noted, proximal to where he was presumably accessed there is some swelling, without tenderness perhaps a seroma or perhaps an
abscess perhaps hematoma will hold on incision and drainage due to proximity to the radial artery
ED Attending Note
-
Portions of this chart may have been created with voice recognition software.� Occasional wrong word or��sound alike� substitutions may have occurred due to the inherent limitations of voice recognition software.
Discharge Plan
Departure
Patient Disposition: Home (Routine Discharge)
Date of Disposition: 04/24/25
Time of Disposition: 00:58
Patient with high blood pressure during this ER visit?: No
Condition: Good
Discharge Problem:
Cellulitis
Instructions: Cellulitis (Skin Infection), Adult (DC), Skin Abscess
Prescriptions:
New
doxycycline hyclate 100 mg tablet
100 mg PO BID Qty: 20 0RF
No Action
tamsulosin 0.4 mg Capsule
0.4 mg PO DAILY
levothyroxine 125 mcg Tablet
125 mcg PO DAILY
glipizide 5 mg Tablet
7.5 mg PO DAILY
dapagliflozin propanediol 5 mg Tablet
5 mg PO DAILY
ticagrelor 90 mg Tablet
90 mg PO BID Qty: 60 11RF
atorvastatin 80 mg Tablet
80 mg PO QPM Qty: 30 3RF
spironolactone 25 mg Tablet
12.5 mg PO DAILY Qty: 15 3RF
pantoprazole 40 mg Tablet,Delayed Release (Dr/Ec)
40 mg PO DAILY Qty: 30 3RF
aspirin 81 mg Tablet,Chewable
81 mg PO DAILY Qty: 90 3RF
metoprolol succinate 25 mg Tablet Extended Release 24 Hr
25 mg PO DAILY Qty: 30 3RF
nitroglycerin [Nitrostat] 0.4 mg tablet, sublingual
0.4 mg sublingual Q5M PRN (Reason: chest discomfort) Qty: 25 3RF
magnesium citrate 125 mg Capsule
250 mg PO DAILY
cranberry
168 mg PO TID
multivitamin Tablet
1 tab PO DAILY
vitamin B complex Tablet Extended Release
1 tab PO DAILY
apple cider vinegar 600 mg Capsule
600 mg PO TID
alpha lipoic acid 100 mg Capsule
100 mg PO DAILY
berberine chloride 500 mg Capsule
500 mg PO BID
cephalexin [Keflex] 500 mg Capsule
500 mg PO TID
lisinopril 5 mg Tablet
5 mg PO BID
coenzyme Q10 [Co Q-10] 400 mg Capsule
400 mg PO DAILY
Extra [place] Oil
2 tbsp PO DAILY
Turmeric Curcumin
500 mg PO DAILY
Referrals:
Lacho Castaneda DO [Family Provider, Family Practice] - Next open appointment
Activity Restrictions/Additional Instructions:
Warm compresses
Stop Keflex start
Doxycycline 2 times a day
Interventions
Interventions:
*Risk Screen - Suicide Last Done: 04/23/25 23:24
*General Assessment Last Done: 04/23/25 23:24
*Neglect/Abuse Screening Last Done: 04/23/25 23:24
*ED- Fall Risk Assessment Last Done: 04/23/25 23:24
*ED COVID-19 Vaccine History Last Done: 04/23/25 23:24
*ED Influenza Vaccine History Last Done: 04/23/25 23:24
ED-Skin Assessment Last Done: 04/24/25 00:38
Discharge Date and Time
Print Language: KITTITIAN
[2025-04-24] MEDS: VIBRAMYCIN 100 MG PO (01:04)
[2025-04-24 01:07] VITALS: BP 119/71
== END 2025-04-24 01:19 | disposition home or self-care (01) ==
LOC: EMR 23:21
PROVIDERS: EMERGENCY PHYSICIAN Emergency Medicine; FAMILY PHYSICIAN Family Medicine
DX: L03.113 Cellulitis of right upper limb (principal); E11.9 Type 2 diabetes mellitus without complications; E78.00 Pure hypercholesterolemia, unspecified; I10 Essential (primary) hypertension; I25.10 Atherosclerotic heart disease of native coronary artery without angina pectoris; Z86.73 Personal history of transient ischemic attack (TIA), and cerebral infarction without residual deficits
CPT/HCPCS: 99283; 82962; 87070; 87205

== ENCOUNTER 2025-05-11 17:31 | Outpatient (RCR) | payer BC, SELFPAY | END 2025-05-16 14:43 | disposition home or self-care (01) | LOC: CRHB 17:31 | PROVIDERS: ATTENDING PHYSICIAN Internal Medicine; FAMILY PHYSICIAN Family Medicine | DX: I25.2 Old myocardial infarction (principal); I25.10 Atherosclerotic heart disease of native coronary artery without angina pectoris (principal); I21.4 Non-ST elevation (NSTEMI) myocardial infarction (principal); Z95.5 Presence of coronary angioplasty implant and graft | CPT/HCPCS: 93797; 93798; G0422; G0423 ==